=== PATIENT | female | born 1975 | race Caucasian/White ===

== ENCOUNTER → 2020-06-21 13:44 | Outpatient (CLI) | payer BC, OTHER, SELFPAY ==
--- NOTE | ~2020-06-21 | MM_ITS ---
EXAMINATION: MM screening [facility] BI w marcella HISTORY: Screening mammogram TECHNIQUE: Craniocaudal and mediolateral oblique 3-D tomosynthesis images were obtained and synthetic 2-D images were generated. CAD analysis was submitted and interpreted. COMPARISON: 02/14/2019, 01/23/2018 BREAST PARENCHYMAL COMPOSITION: The breasts are almost entirely fatty. FINDINGS: There is no evidence of suspicious mass, calcification, or architectural distortion to sugg est malignancy in either breast. There has been no suspicious interval change. IMPRESSION: 1. No mammographic evidence of malignancy. 2. Recommend routine screening mammography in one year. BI-RADS Category 1: Negative Reviewed, dictated and finalized at location A. [employer]
== END ==
PROVIDERS: Visit Provider Nurse Practitioner
DX: Z12.31 Encounter for screening mammogram for malignant neoplasm of breast (principal)
CPT/HCPCS: 77063; 77067

== ENCOUNTER 2021-05-08 16:24 | Emergency (ER) | payer BC, OTHER, SELFPAY ==
--- NOTE | ~2021-05-08 | XR_ITS ---
EXAMINATION: XR chest 1V portable INDICATION: Shortness of breath, COVID 19 positive TECHNIQUE: Portable AP chest at 1756 hours COMPARISON: None available FINDINGS: There are minimal patchy bilateral airspace opacities. No pleural effusion or pneumothorax is identified. The cardiomediastinal silhouette is normal. IMPRESSION: 1. Patchy bilateral airspace opacities consistent with pneumonia given patient's clinical history of COVID 19. Reviewed, dictated and finalized at location F. [employer] IMPRESSION: 1. Patchy bilateral airspace opacities consistent with pneumonia given patient' s clinical history of COVID 19.
[2021-05-08 16:30] VITALS: BP 133/54; PULSE 113; RESP 16; RESP 20; TEMP 36.4; O2SAT 93
--- NOTE | 2021-05-08 16:33 | ED.SOB ---
HPI - SOB/Dyspnea General Chief Complaint: Unspecified Stated Complaint: covid positive 04/30/21; short of breath Time Seen by Provider: 05/08/21 16:33 Source: patient Mode of arrival: ambulatory Limitations: no limitations History of Present Illness HPI Narrative: 46-year-old woman with a history of hypertension comes in today complaining of mild shortness of breath, fatigue, nausea, vomiting and diarrhea. She has her symptoms started approximately 9 or 10 days ago. On April 30 of this year she had tested positive for COVID. She states that her symptoms do not seem to be getting any worse however she does not seem to be getting any better. She has had some lightheadedness and feels dehydrated. She states that she no longer has a productive cough, has no chest pain, and denies syncope. She takes control pills. Has no personal or family history of VTE or PE. MD elicited complaint: shortness of breath Pertinent past history: other (COVID-19) Onset (ago): day(s) (10) Context: recent illness Timing: constant Severity: moderate Exacerbating factors: exertion Relieving factors: rest Associated symptoms: cough, sputum production (Now resolved) and lightheadedness Treatment prior to arrival: none Related Data Home oxygen amount: none Home Medications Medication Instructions Recorded Confirmed citalopram 20 mg tablet 20 mg PO DAILY 05/18/20 05/08/21 cyclosporine 0.05 % eye drops in a 1 drp OPHTHALMIC (EYE) Q12H 05/18/20 05/08/21 dropperette L norgest/e.estradiol-e.estrad 1 tablet PO DAILY 05/08/21 05/08/21 [Rivelsa] Wellbutrin 150 mg PO DAILY 05/08/21 05/08/21 Allergies Allergy/AdvReac Type Severity Reaction Status Date / Time No Known Allergies Allergy Unknown Verified 05/08/21 16:44 Review of Systems Review of Systems: All systems reviewed & are unremarkable except as noted in HPI and below Constitutional: Constitutional: Denies chills, Reports fatigue and Denies fever(s) Eyes: Eyes: Denies change in vision and Denies photophobia ENT: Reports nasal congestion and Denies sore throat Cardiovascular: Cardiovascular: Denies chest pain and Denies radiating jaw, neck or arm pain Respiratory: Respiratory: Denies chest congestion, Reports cough, Reports dyspnea and Denies wheezing Gastrointestinal: Gastrointestinal: Denies abdominal pain, Reports diarrhea, Reports nausea and Reports vomiting Genitourinary: Genitourinary: Denies nocturia and Denies dysuria Integumentary/Breasts: Skin/Breast: Denies pruritus, Denies erythema and Denies rash Neurologic: Reports dizziness, Denies focal weakness, Denies numbness and Denies weakness Hematologic/Lymphatic: Hematologic/Lymphatic: Denies easy bleeding and Denies easy bruising Allergic/Immunologic: Allergic/Immunologic: Denies lip swelling and Denies throat swelling PMFSH Past Medical History Medical History Anxiety Dry eye Hypertension Surgical History Surgical History History of delivery 2004 History of cholecystectomy History of removal of cyst Social History Social History Smoking status: Never smoker Alcohol intake: current Substance use: never Exam Const: General: no acute distress, alert and ill appearing acutely (Mildly) Orientation/consciousness: patient oriented x3 Limitations: no limitations HENMT: Head: normal to inspection Ears: external ears normal, TM's normal bilaterally and EAC's normal General nose exam: Normal nares present Face and sinus: normal facial exam Mouth: Yes moist mucous membranes Throat: posterior oropharynx normal Eyes: Conjunctivae: conjunctivae normal Pupils: Equal, round and reactive pupils present EOM: EOMs intact bilaterally Resp: Effort & Inspection: normal respiratory effort and not labored Auscultation: clear to auscul
[2021-05-08] MEDS: SODIUM CHLORIDE 0.9% IV 1,000 ML 999 ML IV CONT (17:02)
[2021-05-08 17:22] LABS: Hematocrit 37.9 % (35.0-49.0); Hemoglobin 12.8 g/dL (12.0-15.0); Mean Corpuscular HGB Conc 33.8 g/dL (32.0-36.0); Mean Corpuscular Hemoglobin 31.1 pg (27.0-31.0); Mean Platelet Volume 10.4 fl (9.2-11.8); Platelet Count Result 212 K/mm3 (150-420); Red Blood Count 4.12 M/mm3 (4.20-5.40); Red Cell Distribution Width 13.5 % (11.6-14.4); White Blood Count 3.7 K/mm3 (4.8-10.8)
[2021-05-08 17:37] LABS: Alanine Aminotransferase 157 U/L (14-59); Albumin Level 3.4 g/dL (3.4-5.0); Alkaline Phosphatase 76 U/L (46-116); Anion Gap 10 mmol/L (8-16); Aspartate Amino Transferase 62 U/L (15-37); Bilirubin,Total 0.5 mg/dL (0.00-1.00); Blood Urea Nitrogen 12 mg/dL (7-18); Calcium 8.7 mg/dL (8.5-10.1); Carbon Dioxide 28 mmol/L (21-32); Chloride 104 mmol/L (98-108); D Dimer 0.48 mg/L (0.19-0.50); Estimated CRCL calculation 97 ml/min; Estimated Glomerular Filt Rate > 60; Glucose 90 mg/dL (70-99); INR 0.9; Osmolality Calculated 293 mOsm/kg (285-295); Partial Thromboplastin Time 26.6 SEC (23.90-30.70); Potassium 3.9 mmol/L (3.5-5.1); Sodium 142 mmol/L (136-145); Total Protein 7.9 g/dL (6.4-8.2)
[2021-05-08 18:17] LABS: Add Urine Microscopic? YES; Appearance Urine Clear (Clear); Bilirubin Urine Negative (Negative); Blood Urine Negative (Negative); Color Urine Yellow (Yellow); Glucose Urine UA Negative (Negative); Ketones Urine Trace (Negative); Leukocyte Esterase Ur Negative (Negative); Nitrate Urine Negative (Negative); Protein Urine Trace (Negative); Specific Grav Ur 1.025 (1.010-1.020)
[2021-05-08 18:19] LABS: Pregnancy On Board Control Positive; Urine Pregnancy Test Negative
[2021-05-08 18:24] LABS: Bacteria Urine 2+ /hpf; Mucus Urine Few /lpf; RBC Urine 0-2 /hpf (0-2); Squamous Epithelial Cell Urine Few /hpf (Few); WBC Urine 0-3 /hpf (0-3)
[2021-05-08 18:32] LABS: Band Neutrophils Percent 0 % (0-6); Basophils Absolute Manual 0.03 K/mm3 (0-0.1); Basophils Percent Manual 1 % (0-1); Eosinophils Absolute Manual 0.03 K/mm3 (0.02-0.5); Eosinophils Percent Manual 1 % (1-6); Lymphocytes Absolute Manual 1.25 K/mm3 (1.1-4.5); Lymphocytes Percent Manual 34 % (18-44); Monocytes Absolute Manual 0.11 K/mm3 (0.1-0.90); Monocytes Percent Manual 3 % (3-9); Neutrophils Absolute Manual 2.25 K/mm3 (1.7-7.2); Neutrophils Percent Manual 61 % (46-73); Platelet Estimate Adequate (Adequate); Total Cells Counted 100
[2021-05-08 18:44] VITALS: BP 151/79; PULSE 101; RESP 18; O2SAT 98
== END 2021-05-08 19:07 | disposition home or self-care (01) ==
PROVIDERS: Emergency Provider Emergency Medicine; PCP Physician Assistant
DX: U07.1 COVID-19 (principal); E86.0 Dehydration
CPT/HCPCS: 36415; 71045; 80053; 81001; 81025; 85025; 85380; 85610; 85730; 96360; 99283; J7030

== ENCOUNTER 2024-01-18 11:51 | Outpatient (CLI) | payer OTHER, SELFPAY ==
--- NOTE | ~2024-01-18 | MM_ITS ---
EXAMINATION: MM screening [facility] BI w marcella HISTORY: Screening mammogram TECHNIQUE: Craniocaudal and mediolateral oblique 3-D tomosynthesis images were obtained and synthetic 2-D images were generated. CAD analysis was submitted and interpreted. COMPARISON: 11/18/2020, 02/14/2019, 01/23/2018 BREAST PARENCHYMAL COMPOSITION:Not Dense. The breasts are almost entirely fatty FINDINGS: No suspicious mass, calcification, or architectural distortion are identified in either vitaliy ast to suggest malignancy. There has been no suspicious interval change. IMPRESSION: No mammographic evidence of malignancy. Recommend routine screening mammography in one year. BI-RADS Category 1: Negative Reviewed, dictated and finalized at location .
== END 2024-01-18 11:52 | disposition home or self-care (01) ==
PROVIDERS: PCP Physician Assistant; Visit Provider Nurse Practitioner
DX: Z12.31 Encounter for screening mammogram for malignant neoplasm of breast (principal)
CPT/HCPCS: 77063; 77067

== ENCOUNTER 2024-06-09 08:09 | Emergency (ER) | payer OTHER, SELFPAY ==
--- NOTE | ~2024-06-09 | XR_ITS ---
EXAMINATION: XR knee LT min 4V DATE: 06/09/2024 09:05 INDICATION: Left knee injury. Fall. TECHNIQUE: 4 views of left knee were obtained. COMPARISON: None. FINDINGS: Bone alignment is normal. No fracture. There is mild tricompartmental osteoarthritis. No kn ee joint effusion. IMPRESSION: 1. Mild left knee osteoarthritis. Reviewed, dictated and finalized at location A. ISITION ASSOCIATE
--- OUTSIDE RECORDS SUMMARY | 2024-06-09 08:14 | XMS_ITS | Data Portability ---
Author Organization [place] - [facility] [place], Main Office Address [address] [place] [address] Assessment Encounter Date Assessment Date Assessment LastModified by Organization Details LastModified Time 09/07/2022 09/07/2022 cologuard negative 2022. mammogram UTD gyne exam UTD [email or web address] Not available 09/07/2022 09:34:07 Plan of Treatment Reminders Order Date Submit Date Provider Last Modified By Organization Details Last Modified Time Details Appointments None recorded. Lab CBC w/ auto diff 2022 023 [facility], [address], [address], 3 09:44:07 CMP, serum or plasma 2022 023 [facility], [address], [address], 3 09:44:07 lipid panel, serum 2022 023 [facility], [address] [place] [address] [address], [address], 3 09:44:07 TSH + free T4, serum 2022 023 [facility], 102 [facility], [place], [address], 3 09:44:06 testosteron e, free + total, serum 2022 023 [facility], 102 [facility], [place], [address], 3 09:44:07 insulin, serum 2022 023 [facility], 102 [facility], [place], [address], 3 09:44:07 estradiol, serum 2022 023 [facility], 102 [facility], [place], [address], 3 09:44:07 lh + FSH, serum 2022 023 [facility], [address] [place] [address] 2, [place], [address], 3 09:44:07 progesteron e, serum 2022 023 [facility], [address] [place] [address] 2, [place], [address], 3 09:44:07 prolactin, serum 2022 023 [facility], [address] [place] [address] 2, [place], [address], 3 09:44:08 HbA1c (hemoglobin A1c), blood 2022 023 [facility], [address] [place] [address] 2, [place], [address], 3 09:44:08 Referral None recorded. Procedures None recorded. Surgeries None recorded. Imaging None recorded. Medication Orders bupropion HCl XL 150 mg 24 hr tablet, extended release 2022 023 [facility] #[id number], [address] [place], [id number], 3 15:47:10 escitalopra m 20 mg tablet 2022 023 [facility], [address] [place], [place], [id number], 3 15:47:10 Wegovy 0.25 mg/0.5 mL subcutaneou s pen injector 2022 023 [email or web address] [facility] #66556, [address] [place], [place], [id number], 3 16:09:23 telmisartan 80 mg-hydrochl orothiazide 12.5 mg tablet 2022 023 [facility] #80475, [address] [place], [place], [id number], 3 14:42:21 doxycycline hyclate 100 mg capsule 2022 023 [facility] #31785, [address] [place], [place], [id number], 3 14:41:37 Patient TargetsNo targets recorded. Patient InstructionsNo instructions recorded. Reason for Referral None Reported. Results Created Date Observation Date Name Description Value Unit Range Abnormal Flag Note LastModifiedBy Organization Detail LastModifiedTime 12/18/19 21 12/18/2020 VITAM IN D, 25-HY DROXY vitamin D, 25-hydroxy 32.1 NG/mL 30.0-1 00.0 normal Vitam in D defic iency has been defin ed by the Insti tute of Medic ine and an Endoc rine Socie ty pract ice guide line as a level of serum 25-OH vitam in D less than 20 ng/mL (1,2) . The Endoc rine Socie ty went on to furth er defin e vitam in D insuf ficie ncy as a level betwe en 21 and 29 ng/mL (2). 1. IOM (Inst itute of Medic ine). 2010. Dietpolina ry refer venturae toñito es for calci um and D. Nayeli butcher [place]: The Natio nal [facility] . 2. Jenaro lua MF, Yifan nava NC, Patrick off-F errar i ORTIZ, et al. Evalu ation , treat ment, and preve ntion of vitam in D defic iency : an Endoc rine Socie ty clini danisha pract ice guide line. JCEM. 2010; 96(7) :1911 -30. Not Available [facility] ([facility]) [address] [facility], [place], [address], 12/18/2020 11:37:12 12/18/1912/18/2020 HEMOG LOBIN A1C hemoglobin A1C 5.6 % 4.8-5. 6 normal Predi abete s: 5.7 - 6.4 Diabe robreto: >6.4 Glyce roberto contr ol for adult s with diabe roberto: <7.0 Not Available [facility] ([facility]) [address] [place], [address], 12/18/2020 11:37:12 12/18/19 21 12/18/2020 LIPID PANEL W/ CHOL/ HDL RATIO cholesterol, total 189 mg/dL 100-19 9 normal Not Available [facility] ([facility]) [address] [place], [address], 12/18/2020 11:37:11 12/18/19 21 12/18/2020 LIPID PANEL W/ CHOL/ HDL RATIO triglyceride s 135 mg/dL 0-149 normal Not Available [facility]) [address] [place], [address], 12/18/2020 11:37:11 12/18/19 21 12/18/2020 LIPID PANEL W/ CHOL/ HDL RATIO HDL cholesterol 41 mg/dL >39 normal Not Available [facility]) [address] [place], [address], 12/18/2020 11:37:11 12/18/19 21 12/18/2020 LIPID PANEL W/ CHOL/ HDL RATIO VLDL cholesterol danisha 24 mg/dL 5-40 normal Not Available [facility] ([facility]) [address] [place], [address], 12/18/2020 11:37:11 12/18/19 21 12/18/2020 LIPID PANEL W/ CHOL/ HDL RATIO LDL chol calc ([facility]) 124 mg/dL 0-99 above high normal Not Available [facility] ([facility]) [address] [place], [address], 12/18/2020 11:37:11 12/18/19 21 12/18/2020 LIPID PANEL W/ CHOL/ HDL RATIO comment: rug receiving clerk normal Not Available [facility] ([facility]) [address] [place], [address], 12/18/2020 11:37:11 12/18/19 21 12/18/2020 LIPID PANEL W/ CHOL/ HDL RATIO T. chol/HDL ratio 4.6 ratio 0.0-4. 4 above high normal T. Chol/ HDL Ratio Men Women 1/2 Avg.R isk 3.4 3.3 Avg.R isk 5.0 4.4 2X Avg.R isk 9.6 7.1 3X Avg.R isk 23.4 11.0 Not Available [facility] ([facility]) [address] [place], [address], 12/18/2020 11:37:11 12/18/19 21 12/18/2020 UA WITH CULTU RE REFLE X specific gravity 1.027 1.005- 1.030 normal Not Available [facility] ([facility]) [address] [place], [address], 12/18/2020 11:37:11 12/18/19 21 12/18/2020 UA WITH CULTU RE REFLE X pH 6.0 5.0-7. 5 normal Not Available [facility] ([facility]) [address] [place], [address], 12/18/2020 11:37:11 12/18/19 21 12/18/2020 UA WITH CULTU RE REFLE X urine-color yellow yellow normal Not Available [facility]) [address] [place], [address], 12/18/2020 11:37:11 12/18/19 21 12/18/2020 UA WITH CULTU RE REFLE X appearance clear clear normal Not Available [facility] ([facility]) [address] [place], [address], 12/18/2020 11:37:11 12/18/1912/18/2020 UA WITH CULTU RE REFLE X WBC esterase negati ve negati ve normal Not Available [facility] ([facility]) [address] [place], [address], 12/18/2020 11:37:11 12/18/19 21 12/18/2020 UA WITH CULTU RE REFLE X protein negati ve negati ve/tra ce normal Not Available [facility] ([facility]) [address] [place], [address], 12/18/2020 11:37:11 12/18/19 21 12/18/2020 UA WITH CULTU RE REFLE X glucose negati ve negati ve normal Not Available [facility] ([facility]) [address] [place], [address], 12/18/2020 11:37:11 12/18/19 21 12/18/2020 UA WITH CULTU RE REFLE X ketones negati ve negati ve normal Not Available [facility] ([facility]) [address] [place], [address], 12/18/2020 11:37:11 12/18/19 21 12/18/2020 UA WITH CULTU RE REFLE X occult blood negati ve negati ve normal Not Available [facility] ([facility]) [address] [place], [address], 12/18/2020 11:37:11 12/18/19 21 12/18/2020 UA WITH CULTU RE REFLE X bilirubin negati ve negati ve normal Not Available [facility] ([facility]) [address] [place], [address], 12/18/2020 11:37:11 12/18/1912/18/2020 UA WITH CULTU RE REFLE X urobilinogen ,semi-qn 0.2 mg/dL 0.2-1. 0 normal Not Available [facility] ([facility]) [address] [place], [address], 12/18/2020 11:37:11 12/18/19 21 12/18/2020 UA WITH CULTU RE REFLE X nitrite, urine negati ve negati ve normal Not Available [facility] ([facility]) [address] [place], [address], 12/18/2020 11:37:11 12/18/1912/18/2020 UA WITH CULTU RE REFLE X microscopic examination commen t normal Micro scopi c not indic ated and not perfo rmed. Not Available [facility] ([facility]) [address] [place], [address], 12/18/2020 11:37:11 12/18/1912/18/2020 UA WITH CULTU RE REFLE X urinalysis reflex commen t normal This speci men will not refle x to a Urine Cultu re. Not Available [facility] ([facility]) [address] [place], [address], 12/18/2020 11:37:11 12/18/1912/18/2020 CBC WITH DIFFE RENTI AL/PL ATELE T WBC 8.0 x10e3 /uL 3.4-10 .8 normal Not Available [facility] ([facility]) [address] [facility], [place], [address], 12/18/2020 11:37:10 12/18/1912/18/2020 CBC WITH DIFFE RENTI AL/PL ATELE T RBC 3.96 x10e6 /uL 3.77-5 .28 normal Not Available [facility] ([facility]) [address] [facility], [place], [address], 12/18/2020 11:37:10 12/18/1912/18/2020 CBC WITH DIFFE RENTI AL/PL ATELE T hemoglobin 12.0 g/dL 11.1-1 5.9 normal Not Available [facility] ([facility]) [address] [facility], [place], [address], 12/18/2020 11:37:10 12/18/1912/18/2020 CBC WITH DIFFE RENTI AL/PL ATELE T hematocrit 36.3 % 34.0-4 6.6 normal Not Available [facility] ([facility]) [address] [place], [address], 12/18/2020 11:37:10 12/18/1912/18/2020 CBC WITH DIFFE RENTI AL/PL ATELE T MCV 92 fL 79-97 normal Not Available [facility] ([facility]) [address] [place], [address], 12/18/2020 11:37:10 12/18/1912/18/2020 CBC WITH DIFFE RENTI AL/PL ATELE T MCH 30.3 pg 26.6-3 3.0 normal Not Available [facility] ([facility]) [address] [place], [address], 12/18/2020 11:37:10 12/18/1912/18/2020 CBC WITH DIFFE RENTI AL/PL ATELE T MCHC 33.1 g/dL 31.5-3 5.7 normal Not Available [facility] ([facility]) [address] [facility], [place], [address], 12/18/2020 11:37:10 12/18/1912/18/2020 CBC WITH DIFFE RENTI AL/PL ATELE T RDW 13.2 % 11.7-1 5.4 normal Not Available [facility] ([facility]) [address] [facility], [place], [address], 12/18/2020 11:37:10 12/18/1912/18/2020 CBC WITH DIFFE RENTI AL/PL ATELE T platelets 322 x10e3 /uL 150-45 0 normal Not Available [facility] ([facility]) [address] [facility], [place], [address], 12/18/2020 11:37:10 12/18/1912/18/2020 CBC WITH DIFFE RENTI AL/PL ATELE T neutrophils 61 % not estab. normal Not Available [facility] ([facility]) [address] [facility], [place], [address], 12/18/2020 11:37:10 12/18/1912/18/2020 CBC WITH DIFFE RENTI AL/PL ATELE T lymphs 29 % not estab. normal Not Available [facility] ([facility]) [address] [facility], [place], [address], 12/18/2020 11:37:10 12/18/1912/18/2020 CBC WITH DIFFE RENTI AL/PL ATELE T monocytes 5 % not estab. normal Not Available [facility] ([facility]) [address] [facility], [place], [address], 12/18/2020 11:37:10 12/18/1912/18/2020 CBC WITH DIFFE RENTI AL/PL ATELE T eos 4 % not estab. normal Not Available [facility] ([facility]) [address] [facility], [place], [address], 12/18/2020 11:37:10 12/18/19 21 12/18/2020 CBC WITH DIFFE RENTI AL/PL ATELE T basos 1 % not estab. normal Not Available [facility] ([facility]) [address] [place], [address], 12/18/2020 11:37:10 12/18/1912/18/2020 CBC WITH DIFFE RENTI AL/PL ATELE T immature cells rug receiving clerk normal Not Available [facility] ([facility]) [address] [place], [address], 12/18/2020 11:37:10 12/18/1912/18/2020 CBC WITH DIFFE RENTI AL/PL ATELE T neutrophils (absolute) 4.9 x10e3 /uL 1.4-7. 0 normal Not Available [facility] ([facility]) [address] [place], [address], 12/18/2020 11:37:10 12/18/19 21 12/18/2020 CBC WITH DIFFE RENTI AL/PL ATELE T lymphs (absolute) 2.3 x10e3 /uL 0.7-3. 1 normal Not Available [facility] ([facility]) [address] [place], [address], 12/18/2020 11:37:10 12/18/1912/18/2020 CBC WITH DIFFE RENTI AL/PL ATELE T monocytes(ab solute) 0.4 x10e3 /uL 0.1-0. 9 normal Not Available [facility] ([facility]) [address] [place], [address], 12/18/2020 11:37:10 12/18/19 21 12/18/2020 CBC WITH DIFFE RENTI AL/PL ATELE T eos (absolute) 0.3 x10e3 /uL 0.0-0. 4 normal Not Available [facility] ([facility]) [address] [place], [address], 12/18/2020 11:37:10 12/18/19 21 12/18/2020 CBC WITH DIFFE RENTI AL/PL ATELE T baso (absolute) 0.0 x10e3 /uL 0.0-0. 2 normal Not Available [facility] ([facility]) [address] [facility], [place], [address], 12/18/2020 11:37:10 12/18/1912/18/2020 CBC WITH DIFFE RENTI AL/PL ATELE T immature granulocytes 0 % not estab. normal Not Available [facility] ([facility]) [address] [facility], [place], [address], 12/18/2020 11:37:10 12/18/1912/18/2020 CBC WITH DIFFE RENTI AL/PL ATELE T immature grans (abs) 0.0 x10e3 /uL 0.0-0. 1 normal Not Available [facility] ([facility]) [address] [facility], [place], [address], 12/18/2020 11:37:10 12/18/1912/18/2020 CBC WITH DIFFE RENTI AL/PL ATELE T NRBC rug receiving clerk normal Not Available [facility] ([facility]) [address] [facility], [place], [address], 12/18/2020 11:37:10 12/18/1912/18/2020 CBC WITH DIFFE RENTI AL/PL ATELE T hematology comments: rug receiving clerk normal Not Available [facility] ([facility]) [address] [place], [address], 12/18/2020 11:37:10 12/18/1912/18/2020 TSH+F REE T4 TSH 1.410 uIU/m L 0.450- 4.500 normal Not Available [facility] ([facility]) [address] [place], [address], 12/18/2020 11:37:10 12/18/1912/18/2020 TSH+F REE T4 T4,free(dire ct) 0.97 NG/dL 0.82-1 .77 normal Not Available [facility] ([facility]) [address] [place], [address], 12/18/2020 11:37:10 12/18/1912/18/2020 CMP14 +EGFR glucose 90 mg/dL 65-99 normal Not Available [facility] ([facility]) [address] [place], [address], 12/18/2020 11:37:10 12/18/1912/18/2020 CMP14 +EGFR BUN 14 mg/dL 6-24 normal Not Available [facility] ([facility]) [address] [place], [address], 12/18/2020 11:37:10 12/18/1912/18/2020 CMP14 +EGFR creatinine 0.71 mg/dL 0.57-1 .00 normal Not Available [facility] ([facility]) [address] [place], [address], 12/18/2020 11:37:10 12/18/1912/18/2020 CMP14 +EGFR eGFR if nonafricn AM 105 mL/mi n/1.7 3 >59 normal Not Available [facility] ([facility]) [address] [place], [address], 12/18/2020 11:37:10 12/18/19 21 12/18/2020 CMP14 +EGFR eGFR if africn AM 121 mL/mi n/1.7 3 >59 normal Lab diogo curre ntly repor ts eGFR in compl iance with the curre nt recom menda tions of the Natio nal [facility] y [facility] ation . [facility] will updat e repor ting as new guide lines are publi shed from the NKF-A SN Task force . Not Available [facility] ([facility]) [address] [place], [address], 12/18/2020 11:37:10 12/18/1912/18/2020 CMP14 +EGFR BUN/creatini ne ratio 20 9-23 normal Not Available [facility] ([facility]) [address] [place] [place], [address], 12/18/2020 11:37:10 12/18/1912/18/2020 CMP14 +EGFR sodium 137 mmol/ L 134-14 4 normal Not Available [facility] ([facility]) [address] [place], [address], 12/18/2020 11:37:10 12/18/1912/18/2020 CMP14 +EGFR potassium 4.4 mmol/ L 3.5-5. 2 normal Not Available [facility] ([facility]) [address] [place], [address], 12/18/2020 11:37:10 12/18/1912/18/2020 CMP14 +EGFR chloride 103 mmol/ L 96-106 normal Not Available [facility] ([facility]) [address] [place], [address], 12/18/2020 11:37:10 12/18/1912/18/2020 CMP14 +EGFR carbon dioxide, total 23 mmol/ L 20-29 normal Not Available [facility] ([facility]) [address] [place], [address], 12/18/2020 11:37:10 12/18/1912/18/2020 CMP14 +EGFR calcium 9.3 mg/dL 8.7-10 .2 normal Not Available [facility] ([facility]) [address] [place], [address], 12/18/2020 11:37:10 12/18/1912/18/2020 CMP14 +EGFR protein, total 7.1 g/dL 6.0-8. 5 normal Not Available [facility] ([facility]) [address] [place] [place], [address], 12/18/2020 11:37:10 12/18/19 21 12/18/2020 CMP14 +EGFR albumin 4.2 g/dL 3.8-4. 8 normal Not Available [facility] ([facility]) [address] [place], [address], 12/18/2020 11:37:10 12/18/1912/18/2020 CMP14 +EGFR globulin, total 2.9 g/dL 1.5-4. 5 normal Not Available [facility] ([facility]) [address] [facility], [place], [address], 12/18/2020 11:37:10 12/18/19 21 12/18/2020 CMP14 +EGFR A/G ratio 1.4 1.2-2. 2 normal Not Available [facility] ([facility]) [address] [place], [address], 12/18/2020 11:37:10 12/18/1912/18/2020 CMP14 +EGFR bilirubin, total 0.3 mg/dL 0.0-1. 2 normal Not Available [facility] ([facility]) [address] [place], [address], 12/18/2020 11:37:10 12/18/19 21 12/18/2020 CMP14 +EGFR alkaline phosphatase 67 IU/L 48-121 normal Not Available [facility] [address] [place], [address], 12/18/2020 11:37:10 12/18/19 21 12/18/2020 CMP14 +EGFR AST (SGOT) 10 IU/L 0-40 normal Not Available [facility] ([facility]) [address] [facility], [place], [address], 12/18/2020 11:37:10 12/18/19 21 12/18/2020 CMP14 +EGFR ALT (SGPT) 12 IU/L 0-32 normal Not Available [facility] ([facility]) [address] [facility], [place], [address], 12/18/2020 11:37:10 05/17/19 23 05/17/2022 COLOG UARD cologuard result reportable negati ve negati ve NEGAT MONISHA TEST RESUL T. A negat monisha Colog uard resul t indic ates a low likel ihood that a color ectal cance r (CRC) or advan isidro adeno ma ([place] us polyp s with more advan isidro pre-m align ant featu res) is prese nt. The [facility] e that a perso n with a negat monisha Colog uard test has a color ectal cance r is less than 1 in 1500 (nega tive predi ctive value >99.9 %) or has an advan isidro adeno ma is less than 5.3% (nega tive predi ctive value 94.7% ). These data are based on a prosp ectiv e cross -sect ional study of ,00 0 indiv idual s at [facility] risk for color ectal cance r who were scree keily with both Colog uard and colon oscop y. (Caroline Carpio et al, N Engl J Med 2014; 370(1 4):12 86-12 97) The trisha l value (refe rence range ) for this assay is negat monisha. COLOG UARD RE-SC REENI NG RECOM MENDA TION: Perio dic color ectal cance r scree shailesh is an impor tant part of preve ntive healt hcare for asymp tomat ic indiv idual s at [facility] risk for color ectal cance r. Follo wing a negat monisha Colog uard resul t, the Ameri can Cance r Socie ty and U.S. Multi -Soci ety Task Force scree shailesh guide lines recom mend a Colog uard re-sc michael ng inter debbie of 3 years . Refer ences : Kerry can Cance r Socie ty Guide line for Color ectal Cance r Scree shailesh: https ://che w.can cer.o rg/ca ncer/ colon -rect al-ca ncer/ detec tion- diagn osis- stagi ng/ac s-rec ommen datio ns.ht ml.; [place] CAMACHO, Getachew STANTON, Awais EckertK, Color ectal Cance r Scree shailesh: Recom menda tions for Physi cians and Patie nts from the U.S. Multi -Soci ety Task Force on Color ectal Cance r Scree shailesh , Susan gaog y 2017; 112:1 016-1 030. TEST DESCR IPTIO N: [place] site algor ithmi c tera sis of stool DNA-b iomar kers with hemog lobin immun oassa y. Quant itati ve value s of indiv idual bioma rkers are not repor table and are not assoc iated with indiv idual bioma rker resul t refer ence range s. Colog uard is inten ded for color ectal cance r scree shailesh of adult s of eithe r sex, 45 years or older , who are at [facility] for color ectal cance r (CRC) . Colog uard has been appro shirin for use by the U.S. FDA. The perfo rmanc e of Colog uard was estab lishe d in a cross secti onal study of [facility] adult s aged 50-84 . Colog uard perfo rmanc e in patie nts ages 45 to 49 years was estim ated by sub-g roup tera sis of near- age group s. Colon oscop ies perfo rmed for a posit monisha resul t may find as the most clini haily signi fican t lesio n: color ectal cance r [4.0% ], advan isidro adeno ma (incl uding sessi le daisy ghanshyam polyp s great er than or equal to 1cm diame ter) [20%] or non- advan isidro adeno ma [31%] ; or no color ectal neopl ifrah [45%] . These estim ates are deriv ed from a prosp ectiv e cross -sect ional scree shailesh study of ,00 0 ind[facility]ual [facility] risk for color ectal cance r who were scree keily with both Colog uard and colon oscop y. (Caroline Carpio et al, N Engl J Med 2014; 370(1 4):12 86-12 97.) Colog uard may produ ce a false negat monisha or false posit monisha resul t (no color ectal cance r or preca ncero us polyp prese nt at colon oscop y follo w up). A negat monisha Colog uard test resul t does not guara ntee the absen ce of CRC or advan isidro adeno ma (pre- cance r). The curre nt Colog uard scree shailesh inter debbie is every 3 years . (Amer ican Cance r Socie ty and U.S. Multi -Soci ety Task Force ). Colog uard perfo rmanc e data in a 0 patie nt pivot al study using colon oscop y as the refer ence metho d can be [facility]es sed [facility] locat ion: www.e xactl abs.c om/re yanna . Addit ional descr iptio n of the Colog uard test proce ss, warni ngs and preca ution s can be found at www.c lesviau kajal.c om. Not Available [facility] (Cologuard Orders Only) [address], [place], [address], 05/21/2022 08:24:12 05/20/19 22 05/08/2021 XR, chest No observ ation record ed. [id number] Not Available 06/28/2022 20:43:56 02/09/20 22 01/27/2022 home sleep study No observ ation record ed. [email or web address] [facility] [address], [place], [address], 09/07/2022 09:32:53 Result Notes None recorded. Problems Name Problem SNOMED Code Status Onset Date Resolution Date Notes Provider Name and Address Organization Details Recorded Time Benign essential hypertension 5559379 Active 2018 Not Available [facility] 3 20:42:45 Generalized anxiety disorder 42890665 Active 2018 Not Available [facility] 3 20:42:45 Mixed anxiety and depressive disorder 715679570 Active 2021 Not Available [facility] 3 20:42:45 Otitis externa 6138892 Active 2021 Not Available [facility] 3 20:42:45 Acute pharyngitis 478486955 Active 2021 Not Available [facility] 3 20:42:45 Glossopyrosis 328516375 Active 2021 Not Available [facility] 3 20:42:45 Diarrhea of presumed infectious origin 62975130 Active 2021 Not Available [facility] 3 20:42:45 Sleep apnea 26537991 Active 2021 Not Available [facility] 3 20:42:45 Obstructive sleep apnea syndrome 11218621 Active 2021 YNES Najera null, [facility] [employer] [facility] 3 10:43:06 Polycystic ovary syndrome 552701720 Active 2022 MOLLY Dooley [address] [place] [address] [address], [place], [address] , [facility] [employer] [facility] 3 10:05:14 Notes:COVID-19 pos 04/30/21 Problem Notes None recorded. Procedures Surgical History Date Name Laterality Status Provider Name and Address Organization Details Recorded Time Orthopedic Surgery completed Not Available [facility] 06/28/2022 20:42:03 Cholecystectomy completed Not Available [facility] 06/28/2022 20:42:03 completed Not Available [facility] 0 06/28/2022 20:42:03 Imaging Results Imaging Date Name Status LastModified by Organiz ation Details LastModified Time 05/08/2021 XR, chest completed [id number] Information not available 06/28/2022 20:43:56 01/27/2022 home sleep study completed [email or web address] [address], [place], [address], 09/07/2022 09:32:53 Procedure Notes None recorded. Medical Equipment None Reported. Allergies No known drug allergies Medications Name Sig Start Date Stop Date Status Note LastModified by Organization Details LastModified Time telmisartan 40 mg-hydrochl orothiazide 12.5 mg tablet TK 1 T QD PO 10/23 completed Not Available Not Available Not Available doxycycline hyclate 100 mg capsule TAKE 1 CAPSULE BY MOUTH TWICE DAILY WITH MEALS active Not Available Not Available No t Available labetalol 200 mg tablet Take 2 tablets twice a day by oral route. 06/24 completed Not Available Not Available Not Available azithromyci n 250 mg tablet TK 2 TS PO ON DAY 1, THEN TK 1 T PO D FOR 4 DAYS 01/18 completed Not Available Not Available Not Available Lidocaine Viscous 2 % mucosal solution SWISH AND SPIT 5ML 2 TO 3 TIMES DAILY RETAIN IN MOUTH FOR LONG POSSIBLE FOR 7 DAYS 09/06 completed Not Available Not Available Not Available citalopram 10 mg tablet Take 1 tablet every day by oral route. active Not Available Not Available No t Available cephalexin 250 mg capsule 05/27 completed Not Available Not Available Not Available spironolact one 100 mg tablet active Not Available Not Available Not Available metronidazo le 500 mg tablet Take 1 tablet every 8 hours by oral route. active Not Available Not Available No t Available ciprofloxac in 500 mg tablet Take 1 tablet every 12 hours by oral route. active Not Available Not Available No t Available sulfamethox azole 800 mg-trimetho prim 160 mg tablet TAKE 1 TABLET BY MOUTH TWICE DAILY FOR 7 DAYS 05/11 completed Not Available Not Available Not Available citalopram 20 mg tablet TAKE 1 TABLET BY MOUTH EVERY DAY 10/13 completed 1.5 tabs daily . Not Available Not Available Not Available prednisolon e acetate 1 % eye drops,suspe nsion 10/23 completed Not Available Not Available Not Available promethazin e 25 mg tablet 08/22 completed Not Available Not Available Not Available telmisartan 80 mg tablet TAKE 1 TABLET BY MOUTH EVERY DAY 09/07 completed Not Available Not Available Not Available telmisartan 80 mg-hydrochl orothiazide 12.5 mg tablet TAKE 1 TABLET BY MOUTH EVERY DAY active Not Available Not Available No t Available fluoxetine 10 mg capsule TK 1 C PO QD 10/23 completed Not Available Not Available Not Available diclofenac sodium 75 mg tablet,tee yed release TAKE 1 TABLET BY MOUTH TWICE DAILY 05/12 completed Not Available Not Available Not Available norgestimat e-ethinyl estradiol 0.18 mg/0.215mg/ 0.25mg-35 mcg(28)tabl et 05/27 completed Not Available Not Available Not Available lisinopril 10 mg-hydrochl orothiazide 12.5 mg tablet Take 1 tablet every day by oral route. 08/23 completed Not Available Not Available Not Available cefuroxime axetil 500 mg tablet Take 1 tablet every 12 hours by oral route. active Not Available Not Available No t Available losartan 50 mg-hydrochl orothiazide 12.5 mg tablet Take 1 tablet every day by oral route in the morning. active Not Available Not Available No t Available naproxen 500 mg tablet Take 1 tablet twice a day by oral route with meals. active Not Available Not Available No t Available tobramycin 0.3 %-dexametha sone 0.1 % eye drops,suspe nsion 10/23 completed Not Available Not Available Not Available neomycin 3.5 mg/g-polymy case B 10,000 unit/g-dexa meth 0.1 % eye oint 10/23 completed Not Available Not Available Not Available neomycin-po lymyxin-hyd rocort 3.5 mg-10,000 unit/mL-1 % ear drops,susp SHAKE LIQUID AND INSTILL 4 DROPS TO AFFECTED EAR THREE TIMES DAILY 01/18 completed Not Available Not Available Not Available escitalopra m 20 mg tablet TAKE 1 TABLET BY MOUTH EVERY DAY active Not Available Not Available No t Available bupropion HCl XL 150 mg 24 hr tablet, extended release TAKE 1 TABLET BY MOUTH EVERY DAY active Not Available Not Available No t Available levonorgest rel 0.15 mg-ethinyl estradiol 30 mcg tablets,3 mos pack(91) TAKE 1 TABLET BY MOUTH EVERY DAY 01/19 completed Not Available Not Available Not Available losartan 100 mg-hydrochl orothiazide 12.5 mg tablet TK 1 T QD PO active Not Available Not Available No t Available Victoza 2-Db 0.6 mg/0.1 mL (18 mg/3 mL) subcutaneou s pen injector ADM 1.8 MG SC D 05/12 completed Not Available Not Available Not Available Xiidra 5 % eye drops in a dropperette INSTILL 1 DROP TO BOTH EYES TWICE DAILY 05/11 completed Not Available Not Available Not Available Restasis MultiDose 0.05 % eye drops INSTILL 1 DROP IN BOTH EYES TWICE DAILY 09/07 completed Not Available Not Available Not Available Rivelsa 0.15 mg-20 mcg/0.15 mg-25 mcg tablets,3 month dose pack TAKE 1 TABLET BY MOUTH EVERY DAY active Not Available Not Available No t Available BD Carli 2nd Gen Pen Needle 32 gauge x 5/32 U UTD ONCE D active Not Available Not Available No t Available ID NOW COVID-19 Test Kit TEST DIRECTED TODAY 05/12 completed Not Available Not Available Not Available Wegovy 0.25 mg/0.5 mL subcutaneou s pen injector Inject 0.25 mg every week by subcutane ous route. 10/25 completed Not Available Not Available Not Available Ozempic 0.25 mg or 0.5 mg (2 mg/3 mL) subcutaneou s pen injector inject 0.25mg SQ once weekly x 4 weeks, then increase to 0.5mg SQ once weekly 10/25 completed Not Available Not Available Not Available Zepbound 2.5 mg/0.5 mL subcutaneou s pen injector Inject 2.5 mg every week by subcutane ous route as directed. 2022 active Not Available Not Available Not Avai lable Vitals Date Recorded Body mass index (BMI) Body mass index (BMI) Body height Body height Body height Oxygen saturation Oxygen saturation in Arterial blood by Pulse oximetry Oxygen saturation Oxygen saturation in Arterial blood by Pulse oximetry Heart rate Heart rate Respiratory rate Body temperature Body temperature Body weight Body weight Systolic blood pressure Diastolic blood pressure Systolic blood pressure Diastolic blood pressure Provider Name and Address Organization Details Last Updated DateTime 3 44.3 kg/m2 45.8 kg/m2 167.64 cm 167.64 cm 167.64 cm 99 % 99 % 98 % 98 % 86.99 /min 78 /min 16 /min 98 [degF] 98 [degF] 088413. 03 g 410202. 8 g 120 mm[Hg] 80 mm[Hg] 130 mm[Hg] 82 mm[Hg] Not Available [facility] 3 20:42:33 Date Recorded Body height Body temperature Body mass index (BMI) Body weight Respiratory rate Oxygen saturation Oxygen saturation in Arterial blood by Pulse oximetry Heart rate Systolic blood pressure Diastolic blood pressure Provider Name and Address Organization Details Last Updated DateTime 3 167.64 cm 97.3 [degF] 46.8 kg/m2 112342. 79 g 16 /min 95 % 95 % 86 /min 130 mm[Hg] 82 mm[Hg] YNES Najera [facility] [employer] [facility] 3 09:30:06 Date Recorded Systolic blood pressure Diastolic blood pressure Provider Name and Address Organization Details Last Updated DateTime 09/07/2022 148 mm[Hg] 80 mm[Hg] MOLLY Dooley [address], [address], [employer] [facility] [employer] 09/07/2022 14:42:25 Social History Question Answer Notes LastModified by Organizat ion Details LastModified Time Tobacco Smoking Status Never Smoker Not Available [facility] 06/28/2022 20:41:59 What Is Your Level Of Alcohol Consumption? None [id number] Information not available 06/28/2022 What Is Your Level Of Caffeine Consumption? Moderate [id number] Information not available 06/28/2022 How Much Tobacco Do You Chew? None [id number] Information not available 06/28/2022 In The 14 Days Before Symptom Onset, Have You Had Close Contact With A Laboratory-confir med COVID-19 While That Case Was Ill? No [id number] Information not available 06/28/2022 In The 14 Days Before Symptom Onset, Have You Had Close Contact With A Person Who Is Under Investigation For COVID-19 While That Person Was Ill? No [id number] Information not available 06/28/2022 Are You Currently Employed? Yes [email or web address] Information not available 09/06/2022 What Type Of Diet Are You Following? REGULAR [id number] Information not available 06/28/2022 Which Illicit Or Recreational Drugs Have You Used? None [id number].[id number] Information not available 06/28/2022 Do You Or Have You Ever Used E-cigarettes Or Vape? 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 No MIGRATION.[id number] Information not available 06/28/2022 Do You Use Insect Repellent Routinely? No MIGRATION.[id number] Information not available 06/28/2022 What Is Your Relationship Status? Unknown [id number].[id number] Information not available 06/28/2022 Do You Use Your Seat Belt Or Car Seat Routinely? Yes MIGRATION.[id number] Information not available 06/28/2022 Do You Have Smoke And Carbon Monoxide Detectors In Your Home? Yes MIGRATION.[id number] Information not available 06/28/2022 Do You Or Have You Ever Used Smokeless Tobacco? Never Used Smokeless Tobacco MIGRATION.[id number] 1708 Information not available 06/28/2022 How Much Tobacco Do You Smoke? No MIGRATION.[id number] 0985 Information not available 06/28/2022 Do You Use Any Illicit Or Recreational Drugs? No MIGRATION.[id number] 5597 Information not available 06/28/2022 Do You Use Sunscreen Routinely? Yes MIGRATION.[id number] 2419 Information not available 06/28/2022 Have You Recently Traveled Abroad? No MIGRATION.[id number] Information not available 06/28/2022 Do You Have Any Dietary Restrictions? No MIGRATION.[id number] 3077 Information not available 06/28/2022 Do You Or Have You Ever Used Any Other Forms Of Tobacco Or Nicotine? No MIGRATION.[id number] 6274 Information not available 06/28/2022 Sex: Unknown Functional Status Question Answer Note LastModified by Organizat ion Details LastModified Time What is your exercise level? None [id number] Information not available 06/28/2022 Mental Status None recorded. Family History Relationship Description Onset Age of this Age Resolved Age Notes LastModified by Organization Details LastModified Time Father Hypertensive disorder [id number] Not available 06/28/2022 20:42:03 Maternal Grandfather Malignant lymphoma [id number] Not available 06/28/2022 20:42:04 Paternal Aunt Malignant tumor of breast [id number].[id number] Not available 06/28/2022 20:42:04 Mother Dementia [id number] Not available 06/28/2022 20:42:04 Medical History Condition Response HEARTBURN / REFLUX Y HYPERTENSION Y ANXIETY DISORDER Y BACK / NECK PROBLEMS Y Gynecological History Statement/Question Response Menses Monthly N Date of Last Pap 10/12/2020 Abnormal Pap N Date of Last Mammogram 05/31/2019 Current Control Method BCPs Date of LMP 08/02/2018 Obstetrics History GPAL:G 1 P 0 0 0 1 Type Value Living 1 Total 1 Past Encounters Encounter ID Performer Location Encounter Start Date Encounter Closed Date Diagnosis/Indication Diagnosis SNOMED-CT Code Diagnosis ICD10 Code Diagnosis Note [id number] [facility] [address] [place] [address] 10/13/2020 00:00:00 10/27/2020 17:35:26 [id number] [facility] [address] [place] [address] 05/12/2021 00:00:00 05/30/2021 11:54:22 [id number] [facility] [address] [place] [address] 01/19/2022 00:00:00 01/24/2022 22:08:35 [id number] MOLLY Dooley [facility] [address] [place] [address] 09/07/2022 09:22:44 09/07/2022 10:12:08 Adult health examination 555873478 Z00.01 well exam completed Benign ess ential hypertension 6545241 I10 refill on medication . stable. 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 refilled. Long-term drug therapy 000707278 Z79.899 screening CBC, CMP. Body mass index 40+ - severely obese 094644582 Z68.42 start wegovy if insurance will authorize and screening TFTs due. Polycystic ovary syndrome 554620013 E28.2 screening hormone panel. Cholesterol screening 27 5152967 Z13.220 fasting lipids due Diabetes m ellitus screening 762439986 Z13.1 screening diabetes due Bite of tick 511422141 W 57.XXXA empiric doxy 100mg bid course. Health Concerns Section Related Observation LastModified by Organization Detai ls LastModified Time None Recorded Concern Status LastModified by Organization Details LastModified Time None Recorded Advance Directives Directive None Recorded Payers Encounter Date Sequence Insurance Name Policy Number Policy Ken Covered Member ID Ken Member ID Guarantor Name 09/07/2022 2 [employer] - [employer] [id number] (PPO) [id number] Jeni Kohler [id number] Jeni Kohler 09/07/2022 1 [facility] [id number] Jeni Kohler [id number] Jeni Kohler Notes Date Note Type Note Provider Name and Address Organization Details Recorded Time 10/14/19 21 text/htm l Anxiety, Generalized DisorderReported bypatient.Onset/Timing:as long as patient can remember Severity:severe Context:depression; life stressors Modifying Factors:psychotropic medication Associated Symptoms:difficulty concentrating;difficulty controlling worry;excess anxiety;fatigue;high irritability;restlessness;slee p disturbancesNotes:Doesn't think her Citalopram is working. Feels that her anxiety worsened ~end of last year. Stated she has been dealing w/ frequent loss of family members in the past year or so, loss of a pet this month, of her mother in law last month. Bitely that the citalopram was working well before these recent life stressors. Has been talking to a counselor in the last month or so. She feels that this has been helpful but not quite enough. States that her Citalopram dose was increased from 20 to 30mg in the last 2-3wks ago, has not yet felt any benefit from the dosage changed. States that her symptoms have interfered w/ daily life, made day to day functions more difficult, interfered w/ sleep (both falling asleep and staying asleep). Feels that she does not experience night terrors or nightmares/flashbacks, more so just insomnia. States counselor feels that she has PTSD, major depressive disorder, KWADWO, and ADD. Denies any thoughts of hurting herself or others. Thinks she has attempted prozac in the past but denies any other prior SSRI use/alterations in therapy before beginning the Citalopram. Also wondering if thyroid and Vit D can be checked today. Not Available [employer] 10/27/2020 17:35:26 05/12/19 text/htm l Generic HPI TemplateReported bypatient.Notes:Apr 29 symptoms started (fatigue, aches, chills, sweats, no fever), tested positive apr 30. Pt went to the e/r on 05/08/21 for being dehydrated w/having COVID. They told her everything was fine but she dehydrated and gave her fluids. We called her on the and gave her abx for abnormal CXR infiltrates. Today she says she still has the head congestion but it is improving. Not Available [employer] 05/30/2021 11:54:22 01/20/20 text/htm l Anxiety/DepressionReported bypatient.Quality:doesnt matter time of day. Severity:denies suicidal ideations; able to maintain relationships; does not interfere with activities of daily living Duration:symptoms lasting over 2 weeks Onset/Timing:still present Context:major life stressors(mom just got dx w/dementia) Modifying Factors:she stopped the medication on her own Associated Symptoms:denies homicidal ideations; no significant weight gain; no significant weight loss; no visual/auditory hallucinations; no delusions; no shortness of breath; mood good; no anxiety; no crying spells; no panic; no isolation; sleeping well; appetite good; energy good; no apathy; maintaining functionality HypertensionReported bypatient.Duration:has noted for years Onset/Timing:better Alleviating Factors:medication Self Care:not under emotional stress Associated Symptoms:no shortness of breath; no fatigue; no palpitations; no decline in exercise capacity; no snoring Not Available [employer] 01/24/2022:08:35 09/08/19 23 text/htm l Anxiety/DepressionReported bypatient.Quality:symptoms worse during the day Severity:denies suicidal ideations; able to maintain relationships; does not interfere with activities of daily living Duration:symptoms lasting over 2 weeks Onset/Timing:still present Context:no major life stressors Associated Symptoms:denies homicidal ideations; no significant weight gain; no significant weight loss; no visual/auditory hallucinations; no delusions; no shortness of breathHypertensionReported bypatient.Duration:has noted for years Onset/Timing:better Alleviating Factors:medication Associated Symptoms:no shortness of breath; no fatigue; no palpitations; no decline in exercise capacity; no snoringObstructive Sleep Apnea F/UReported bypatient.Quality:no gasping for air; no witnessed apnea; no hyponasal speech; no frequent breathing through the mouth; no change since last visit;loud snoring Onset/Timing:chronic Duration:continuous Severity:does not limit daily activities; no frequent sore throats resulting in excess missed days from school / work per year; no difficulty getting going in the morning; no awakening in the middle of the night with sore throat Location:no enlarged tonsils; no nasal passage blockage; no throat pain; no feeling of tightness in throat; no chest congestion;throat pain;dryness of mouth Context:no lack of adequate sleep; no shift work; not currently taking medication to help sleep; no recent weight gain; no recent upper respiratory infection; no recent sick contacts; not worse with environmental exposure; not worse with seasonal allergen exposure; no hypertension; normal sleep hours Aggravating factors:not worse during an upper respiratory infection (a cold); not worse when allergies are active Associated Symptoms:no morning headache; no awakening at night short of breath; no sweating heavily at night; no excessive sleepiness during the day; no suddenly falling asleep during the day; no napping; no impaired work performace; no nasal congestion [facility] MOLLY Dooley [address] [place] [address], [facility] [address], [place], [address], [place] [facility] 09/27/2022 16:06:55 OBGyn Episode No OBEpisode recorded.
--- OUTSIDE RECORDS SUMMARY | 2024-06-09 08:14 | XMS_ITS | Clinical Summary ---
Author Organization [facility] Address [address] [place] [address] Phone Care Team Providers Care Traffic Director Name Role Phone JOANN HOWARD DO Unavailable [phone] Reason for Visit and Chief Complaint The Chief Complaint is: No COVID exposure, sx of coughing yellow/green phlegm, swollen S.T, and stuffy nasal congestion since Sunday morning, and diarrhea little bit x 2 days-once daily & this morning (No COVID vaccines) Plan of Treatment Rapid COVID/Flu/Strep testing was negative. Discussed OTC medications as needed for symptoms. Follow up if symptoms worsen or do not improve. - Last Documented On 02/06/2022 2:34PM ; [facility] Assessments Includes: Assessments from this encounter Findings - Contact with and (Suspected) exposure to COVID-19 [Z20.822 - Contact with and (suspected) exposure to COVID-19] - Last Documented On 02/06/2022 2:34PM ; [facility] - Allergic rhinitis [J30.9 - Allergic rhinitis, unspecified] - Last Documented On 02/06/2022 2:34PM ; [facility] - Acute pharyngitis [J02.9 - Acute pharyngitis, unspecified] - Last Documented On 02/06/2022 2:34PM ; [facility] Medical Equipment - Implanted Devices Includes: Current Devices No Medical Equipment Recorded Medications Includes: Medications discussed during this encounter and other current Medications No Medications Taken Medications Administered Includes: Administered Medications from this encounter No Administered Medications Recorded Vital Signs Includes: Vital Signs from this encounter Vital Name 02/06/2022 02:15P Pulse Rate-Sitting (bpm) 93 Temp-Oral (F) 99 Weight (lb) 280 Oxygen Saturation (%) 93 Last Documented: On 02/06/2022 2:17PM ; [facility] Results Includes: Results discussed during this encounter Group A strep [facility] Or[facility] 1 Collected: Reported: 02/06/2022 Last Documented On 2 2:34PM ; [facility] Reviewed by ROSIBEL CHRISTYRadames [facility] on 02/06/2022; All test results are final unless otherwise noted. Rapid Strep neg N (Normal) Last Documented On 2 2:28PM ; [facility] LOT # AND EXP. DATE [id number] 03/09/24 N (Normal) Last Documented On 2 2:28PM ; [facility] INT. QC ACCEPTABLE? yes N (Normal) Last Documented On 2 2:28PM ; [facility] SARS COVID-19 FLU A & B [facility] Collected: Reported: 02/06/2022 Last Documented On 2 2:34PM ; [facility] Reviewed by ROSIBEL CHRISTYRadames [facility] on 02/06/2022; All test results are final unless otherwise noted. COVID neg N (Normal) Last Documented On 2 2:28PM ; [facility] INFLUENZA A neg (Negative) N (Normal) Last Documented On 2 2:28PM ; [facility] INFLUENZA B neg (negative) N (Normal) Last Documented On 2 2:28PM ; [facility] INT. QC ACCEPTABLE? yes N (Normal) Last Documented On 2 2:28PM ; [facility] [employer] [facility] LOT # & EXP. DATE [id number] 03/03/22 N (Normal) Last Documented On 2 2:28PM ; [facility] History of Present Illness Includes: History of Present Illness from this encounter NATHANIEL ELIZONDO is a 46 year old female. - Allergy list reviewed - Medication list reviewed - Feeling poorly (malaise) - No fever - Headache - No eye symptoms - The ears feel pressured - Nasal discharge - Postnasal drip - Nasal passage blockage (stuffiness) - Fluctuating sore throat - No earache - No chest pain or discomfort - No chest tightness or heavy pressure - No dyspnea - No cough - No wheezing - Normal appetite - No nausea - No vomiting - No abdominal pain - No diarrhea - No myalgias - No taste decreased Veronica is here with congestion, sore throat, headache and intermittent loose stools- she reports she thought it might just be allergies but wanted to be checked to be sure. Social History Description Last Updated Tobacco non-user 02/06/2022 Last Documented On 2 2:34PM ; [facility] Smoking Status Unknown Procedures and Surgical History Includes: Procedures from this encounter Procedures Code Diagnosis Performing Provider Service L ocation Service Date the options include decongestants as needed per product instructions Last Documented On 2 2:33PM ; [facility] the options include antihistamines as ne eded per product instructions Last Documented On 2 2:33PM ; [facility] Discussed with family that c urrent strep testing is NEGATIVE. Pt /family with be notified if further testing reveals positive strep pharyngitis. Discussed with pt /family the etiology, natural course, possible complications, and treatment options for pharyngitis. Recommended OTC therapy with pain/fever control products, topical products (lozenges/sprays/gargles) as needed per otr owner operator's recommendation. Recommended for pt/ family to call/return to office with follow up if pt persits with greater than 5 days of symptoms, worsens, or as otherwise directed. Discussed with pt / family that is pt contagious until fever free for at least 24 hours. Return to activities when pt feels well and fever free for 24 hours. Observe pt contacts for signs/symptoms of illness Last Documented On 2 2:33PM ; [facility] patient to call if symptoms worsen or not improved in 3-5 days to update patient's status Last Documented On 2 2:33PM ; [facility] use of tobacco assessment performed 1000F Last Documented On 2 2:15PM ; [facility] Medical History Includes: Medical History addressed during this encounter No Medical History Recorded Family History Includes: Family History addressed during this encounter No Family History Recorded Review of Systems Includes: Review of Systems from this encounter Systemic: No fever. Head: Headache. Otolaryngeal: No earache. Nasal discharge and sore throat. Cardiovascular: No chest pain or discomfort. Pulmonary: No dyspnea, no cough, and no wheezing. Gastrointestinal: No vomiting, no abdominal pain, and no diarrhea. Musculoskeletal: No muscle aches. Neurological: No Loss of taste or smell. Skin: No skin symptoms. Mental Status Includes: Mental Status from this encounter Description Oriented to time, place, and person Functional Status Includes: Functional Status from this encounter No Functional Status Recorded Physical Exam Includes: Physical Exam from this encounter Allergies Includes: Active Allergies No Known Allergies Encounters Encounter Provider Location Date Check-In Time Check-Out Time Diagnosis COVID SICK VISIT- NEW PATIENT ROSIBELJony ZAYAS TRAFFIC REPRESENTATIVE-C [facility] 02/07/20 2:15PM 2:26PM Contact with and (Suspected) Exposure To Covid-19,Brian rgic Rhinitis,Phar yngitis Acute Insurance Includes: Active Insurance Policies Plan Name Member ID Group # Subscriber Relationship Effect fabi Dates 1 - [facility] [id number] VERONICA ELIZONDO Self 04/30/2021 - Unknown 2 - [facility] [id number] JOVON ELIZONDO Clinical Notes Includes: Clinical Notes from this encounter No Clinical Notes Recorded
--- OUTSIDE RECORDS SUMMARY | 2024-06-09 08:14 | XMS_ITS | Clinical Summary ---
Author Organization [facility] Address [address] [place] [address] Phone Care Team Providers Care Solid Waste Collection Worker Name Role Phone JOANN HOWARD DO Unavailable [phone] Reason for Visit and Chief Complaint NEW PATIENT VISIT Plan of Treatment No Plan of Treatment Recorded Assessments Includes: Assessments from this encounter No Assessments Recorded Medical Equipment - Implanted Devices Includes: Current Devices No Medical Equipment Recorded Medications Includes: Medications discussed during this encounter and other current Medications No Medications Taken Medications Administered Includes: Administered Medications from this encounter No Administered Medications Recorded Results Includes: Results discussed during this encounter No Results Recorded For Specified Dates History of Present Illness Includes: History of Present Illness from this encounter No History of Present Illness Recorded Social History No Social History Recorded - Smoking Status Unknown Medical History Includes: Medical History addressed during this encounter No Medical History Recorded Family History Includes: Family History addressed during this encounter No Family History Recorded Review of Systems Includes: Review of Systems from this encounter No Review of Systems Recorded Mental Status Includes: Mental Status from this encounter No Mental Status Recorded Functional Status Includes: Functional Status from this encounter No Functional Status Recorded Physical Exam Includes: Physical Exam from this encounter No Physical Exam Recorded Allergies Includes: Active Allergies No Known Allergies Encounters Encounter Provider Location Date Check-In Time Check- Out Time Diagnosis NEW PATIENT VISIT RODNEY Alma JACOBOIKE DO [facility] 6 9:45AM 11:59PM Insurance Includes: Active Insurance Policies Plan Name Member ID Group # Subscriber Relationship Effect fabi Dates 1 - [facility] [id number] VERONICA ELIZONDO Self 04/30/2021 - Unknown 2 - [employer] [id number] [place] Clinical Notes Includes: Clinical Notes from this encounter No Clinical Notes Recorded
--- OUTSIDE RECORDS SUMMARY | 2024-06-09 08:14 | XMS_ITS ---
Care Plan - [facility] Created on: June 09, 2024 VERONICA ELIZONDO : 1975 Sex: Female Author Organization [facility] Address [address] [place] [address] Phone Care Team Providers Care Plant Maintenance Mechanic Name Role Phone JOANN HOWARD DO Unavailable [phone]
--- OUTSIDE RECORDS SUMMARY | 2024-06-09 08:15 | XMS_ITS ---
Author Organization [facility] Address [address] [place] [address] Phone Care Team Providers Care Windshield Repair Technician Name Role Phone JOANN HOWARD DO Unavailable [phone] Plan of Treatment No Plan of Treatment Recorded Assessments Includes: Assessments for all patient encounters Findings Encounter Date Acute pharyngitis COVID SICK VISIT- NE W PATIENT with ROSIBEL Borges ZAYAS CENTRAL OFFICE WORKER-C 02/06/2022 Last Documented On 2 2:34PM ; [facility] Allergic rhinitis COVID SICK VISIT- NE W PATIENT with ROSIBEL Borges ZAYAS CENTRAL OFFICE WORKER-C 02/06/2022 Last Documented On 2 2:34PM ; [facility] Contact with and (Suspected) exposure to COVID-19 COVID SICK VISIT- NEW PATIENT with ROSIBEL Borges ZAYAS CENTRAL OFFICE WORKER-C 02/06/2022 Last Documented On 2 2:34PM ; [facility] Medical Equipment - Implanted Devices Includes: Current and historical Devices No Medical Equipment Recorded Medications Includes: Current and historical Medications No Medications Taken Medications Administered Includes: Administered Medications in patient's chart No Administered Medications Recorded Results Includes: Results from 06/09/2023 through 06/09/2024 No Results Recorded For Specified Dates History of Present Illness History of Present Illness not supported for this document type No History of Present Illness Recorded Social History Description Last Updated Tobacco non-user 02/06/2022 Last Documented On 2 2:34PM ; [facility] Smoking Status Unknown Medical History Includes: Medical History in patient's chart No Medical History Recorded Family History Includes: Family History in patient's chart No Family History Recorded Review of Systems Review of Systems not supported for this document type No Review of Systems Recorded Mental Status Description Oriented to time, place, and person Functional Status No Functional Status Recorded Physical Exam Physical Exam not supported for this document type No Physical Exam Recorded Allergies Includes: Active, inactive, and resolved Allergies No Known Allergies Insurance Includes: Active Insurance Policies Plan Name Member ID Group # Subscriber Relationship Effect fabi Dates 1 - [facility] [id number] VERONICA ELIZONDO Self 04/30/2021 - Unknown 2 [id number] JOVON ELIZONDO Clinical Notes Includes: Signed Clinical Notes starting from 05/19/2022 No Clinical Notes Recorded
--- OUTSIDE RECORDS SUMMARY | 2024-06-09 08:15 | XMS_ITS | Clinical Summary ---
Author Organization [facility] [address] Address [address] [place] [address] Phone Care Team Providers Care Technicians And Trades Workers Name Role Phone FayelatishaZari Primary Care Pr ovider Allergies No known active allergies Medications INTROVALE 0.15 mg-30 mcg per tablet Take 1 tablet by mouth daily. 10/02/19 18 Active ibuprofen (ADVIL,MOTRIN) 200 mg tab/cap Take by mouth every 6 (six) hours as needed. Active labetalol (NORMODYNE,TRAND ATE) 200 mg tabletIndication s:Essential hypertension Take 2 tablets (400 mg total) by mouth 2 (two) times a day. 360 tablet 3 11/07/19 18 Active citalopram (CeleXA) 20 mg tablet Take 20 mg by mouth daily 07/27/19 21 Active Restasis MultiDose 0.05 % drops INSTILL 1 DROP IN BOTH EYES TWICE DAILY 07/10/19 21 Active telmisartan (MICARDIS) 80 mg tablet Take 80 mg by mouth daily 07/11/19 21 Active pen needle, diabetic (BD Carli 2nd Gen Pen Needle) 32 gauge x 5/32 needle BD Carli 2nd Gen Pen Needle 32 gauge x 5/32 U UTD ONCE D Active levonorgestreL-e thinyl estrad (SEASONALE) 0.15 mg-30 mcg (91) per tablet levonorgestrel 0.15 mg-ethinyl estradiol 30 mcg tablets,3 mos pack(91) TAKE 1 TABLET BY MOUTH EVERY DAY Active buPROPion XL (WELLBUTRIN XL) 150 mg 24 hr tablet bupropion HCl XL 150 mg 24 hr tablet, extended release Active diclofenac DR (VOLTAREN) 75 mg EC tablet diclofenac sodium 75 mg tablet,delayed release TAKE 1 TABLET BY MOUTH TWICE DAILY Active escitalopram (LEXAPRO) 20 mg tablet Take 20 mg by mouth daily 02/24/20 21 Active liraglutide (Victoza 2-Db) 0.6 mg/0.1 mL (18 mg/3 mL) injection Victoza 2-Db 0.6 mg/0.1 mL (18 mg/3 mL) subcutaneous pen injector Active Rivelsa 0.15 mg-20 mcg/ 0.15 mg-25 mcg tablets,dose pack,3 month Take 1 tablet by mouth daily 03/21/20 21 Active naproxen (NAPROSYN) 500 mg tablet naproxen 500 mg tablet TAKE 1 TABLET BY MOUTH TWICE DAILY WITH MEALS Active sulfamethoxazole -trimethoprim (BACTRIM DS) 800-160 mg per tablet sulfamethoxazole 800 mg-trimethoprim 160 mg tablet TAKE 1 TABLET BY MOUTH TWICE DAILY FOR 7 DAYS Active Active Problems Problem Noted Date Diagnosed Date Generalized anxiety disorder 06/21/2018 Acute right ankle pain 11/01/2017 Assessment & Plan (11/06/2017 9:37 AM CDT): She noted the onset of pain in the lateral aspect of her right ankle last . There was no history of injury. She has had problems with the left ankle in the past and has an ankle brace which she has started to wear. The pain is improving. Exam shows no swelling, laxity, tenderness or warmth. There is no joint effusion. Most likely she has a mild soft tissue injury, possibly from her weight. Recommend she stay off the ankle as much as possible. She can apply ice. She can take [id number] Advil as needed. Follow-up in a week or so if not better. Bleeding hemorrhoids 11/22/2015 Overview (08/03/2016): Bleeding hemorrhoid Benign essential hypertension 08/30/2015 Overview (05/02/2021): Hypertension Assessment & Plan (11/06/2017 9:39 AM CDT): She had a little trouble with the labetalol initially, and stopped taking it for awhile, but has resumed it and needs a refill. Blood pressure in the office is in a good range. Continue same and follow-up at least annually. Mixed hyperlipidemia 11/29/2010 Overview (08/04/2016): Hyperlipidemia Assessment & Plan (11/06/2017 9:40 AM CDT): We reviewed her cholesterol profile from 2010. She will be getting some follow- up labs soon in a wellness physical. Based on her 2010 profile, her [place] 10 year risk is very low. There is no indication for treatment at this time. Adiposity 09/28/1997 Overview (08/03/2016): Obesity Assessment & Plan (11/06/2017 9:38 AM CDT): She had some success with weight loss while seeing a sociology teacher, but has gained it all back and more. She is under a lot of stress. 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 She is busy with her family. She plans to drop the photography this summer so she can have more time for herself. She will be working on her weight. We went over basal energy expenditure, allocation of calories, activity level, etc. She will get back with her sociology teacher as well. She will be getting wellness labs soon, and if there are problems or questions, she can bring them in for review. Follow-up at least annually for this problem. Migraine headache 10/28/1989 Overview (10/15/2016): Rare migraines. Immunizations Name Administration Dates Next Due Tdap 11/29/2010 Surgical History Surgery Date Site/Laterality Comments CHOLECYSTECTOMY Cholecystectomy SECTION 04/30/2003 - 04/29/2004 Breech: c/s CYST REMOVAL L wrist cyst removed, details lacking. HEMORRHOID SURGERY Right anterior internal plus external hemorrhoidectomy Medical History Medical History Date Comments Hypertension Hypertension Hemorrhoids 11/22/2015 Hemorrhoids; Com ments: ECS 11/28/2015 - Obesity Obesity; Comment s: ECS 10/12/2015 - 2004 Breech presentat ion, . Family History Medical History Relation Name Comments Hyperlipidemia Father Hyperlipidemi a; Hypertension Father Hypertension; Breast cancer Father's Sister 2 Cancer, b reast; Breast cancer Father's Sister 3 Cancer, b reast; Alzheimer's disease Maternal Grandfather Alzheimer's Disease; Diabetes Maternal Grandmother Diabete s mellitus; /Diabetes mellitus; Migraines Mother Migraines; Relation Name Status Comments Father Father's Sister 1 Father's Sister 2 Father's Sister 3 Maternal Grandfather Maternal Grandmother Mother Social History Tobacco Use Types Packs/Day Years Used Date Smoking Tobacco: Never Smokeless Tobacco: Never Alcohol Use Standard Drinks/Week Comments No 0 (1 standard drink = 0.6 oz pur e alcohol) Personal Safety Answer Date Recorded Have you ever been in or are you currently in a harmful physical or emotional relationship or is someone making you feel afraid or unsafe? Denies 08/26/2022 Comments No Sex and Gender Information Value Date Recorded Sex Assigned at Not on file Legal Sex Female 10:58 AM HOOP EXPANDER Gender Identity Not on file Sexual Orientation Not on file Obstetrics History Last Filed Vital Signs Vital Sign Reading Time Taken Comments Blood Pressure 130/74 08/26/2022 12:35 PM CDT Pulse 80 08/26/2022 12:35 PM CDT Temperature 36.6 C (97.9 F) 08/26/2022 8:43 AM CDT Respiratory Rate 12 08/26/2022 12:35 PM CDT Oxygen Saturation 96% 08/26/2022 12:35 PM CDT Inhaled Oxygen Concentration - - Weight 122.5 kg (270 lb) 08/26/2022 8:43 AM CDT Height 167.6 cm (5' 6 ) 08/26/2022 8:43 AM CDT Body Mass Index 43.58 08/26/2022 8:43 AM CDT Plan of Treatment Health Maintenance Due Date Last Done Comments Breast Cancer Screening-Mammogram 1975 Colon Cancer Screening-Colonoscopy 1975 Depression Screening 1975 Hepatitis C Screening 1975 Hepatitis B Screening 1995 Cervical Cancer Screening 05/02/20132012, 05/01/2012 Regular Well Visit/Exam 18-64 11/06/2018 11/06/2017 DTaP/Tdap/Td Vaccine (2 - Td or Tdap) 11/29/2020 11/29/2010 Influenza Vaccine (#1) 2023 Pneumococcal vaccine <65 Aged Out No longer eligible based on patient's age to complete this topic Procedures Procedure Name Priority Date/Time Associated Diagnosis Comments THINPAP, REFLEX HPV ALL PTH Routine 05/02/2012 1:46 PM HOOP EXPANDER from Last 3 Months or Most Recently Relevant to Health Maintenance Results * ThinPrep Pap, Reflex HPV all pth (05/02/2012 1:46 PM HOOP EXPANDER) SOURCE: SEE NOTE [facility] HISTORICAL RESULTS Comment:Cervix, Endocervix CLINICAL INFORMATION: SEE NOTE [facility] HISTORICAL RESULTS Comment:Normal exam LMP SEE NOTE [facility] HISTORICAL RESULTS Comment:INFORMATION NOT PROV IDED Previous Pap SEE NOTE [facility] HISTORICAL RESULTS Comment:03/27/11 Prev. Bx SEE NOTE [facility] HISTORICAL RESULTS Comment:INFORMATION NOT PROV IDED Pap, specimen adequacy SEE NOTE [facility] HISTORICAL RESULTS Comment: Satisfactory for evaluation. Endocervical/transformation zone component present. Age and/or menstrual status not provided HPV interp SEE NOTE [facility] HISTORICAL RESULTS Comment:Negative for intraep ithelial lesion or malignancy. Lactobacillus species SEE NOTE [facility] HISTORICAL RESULTS Comment: This Pap test has been evaluated with computer assisted technology. Based on the cytology result, reflex High Risk HPV DNA testing was not performed. Abstract Checker SEE NOTE [facility] HISTORICAL RESULTS Comment:YQ, CT(ASCP)) Review ship pilot dispatcher SEE NOTE [facility] HISTORICAL RESULTS Comment: LXS, CT(ASCP) Test performed at [facility] [address] [address] Director: SADE DENT DO [facility] 05/02/2012 1:46 PM HOOP EXPANDER Kat Morales MD LAB PATHOLOGY ORDER NIKOLAS Final Result [facility] HISTORICAL RESULTS from Last 3 Months or Most Recently Relevant to Health Maintenance Insurance [facility] CHOICE PLUS [facility] EPO [facility] CHOICE PLUS [employer] [id number] Member Subscriber Plan / Payer (Ef fective 2022-Present) Name:Jeni Kohler Relation to Subscriber:Self Name:Jeni Kohler Payer ID:[id number] (NA) Group ID:[id number] Type:[employer]IG[employer] HMO/PPO Address: [address] [address] [facility] CHOICE PLUS [employer] OPEN ACCESS [facility] EPO Member Subscriber Plan / Payer (Ef fective 2021-Present) Name:Jeni Kohler Relation to Subscriber:Self Name:Jeni Kohler Payer ID:[id number] (NAIC) Type:[facility] Address: [address] [place] [id number] Care Teams Technicians And Trades Workers Relationship Specialty Start Date End Date Zari Murillo PA PCP - General Physician Drafting Detailer 08/10/20
--- OUTSIDE RECORDS SUMMARY | 2024-06-09 08:15 | XMS_ITS | Data Portability ---
Author Organization [facility]ENTER[facility]ichaDorothy H Address [address] [place] [address] Care Team Providers Care Parts Counterperson Name Role Phone SHAHIDA MARCANO Primary Care Provider Unavailab le Assessment No assessment recorded. Plan of Treatment Reminders Order Date Submit Date Provider Last Modified By Organization Details Last Modified Time Details Appointments ANY 15 2024 08:30A M MOLLY Dooley Not available Not available Not available Lab lipid panel, serum 2024 025 [email or web address] [facility], [address] [place] [address], [address], 05/26/2024 17:00:16 CBC w/ auto diff 2024 025 [email or web address] [facility], [address] [place] [address], [place], [address], 05/26/2024 17:00:16 CMP, serum or plasma 2024 025 [email or web address] [facility], [address] [place] [address], [place], [address], 05/26/2024 17:00:16 insulin, serum 2024 025 [email or web address] [facility], [address] [place] [address], [place], [address], 05/26/2024 17:00:16 TSH + free T4, serum 2024 025 [email or web address] [facility], [address] [place] [address], [place], [address], 05/26/2024 17:00:16 HbA1c (hemoglob in A1c), blood 2024 025 [email or web address] [facility], [address] [place] [address], [address], 05/26/2024 17:00:16 Referral None recorded. Procedures None recorded. Surgeries None recorded. Imaging None recorded. Medication Orders meloxicam 15 mg tablet 2023 024 [email or web address] [facility] #[id number], [address] [place] [address], [id number], 05/01/2024 09:50:35 trazodone 50 mg tablet 2023 024 [facility] #90786, [address] [place] [address], [id number], 07/20/2023 13:20:15 telmisart an 80 mg-hydroc hlorothia zide 12.5 mg tablet 2023 024 [facility] #98943, [address] [place] [address], [id number], 07/20/2023 13:20:10 bupropion HCl XL 150 mg 24 hr tablet, extended release 2023 024 [facility] #39375, [address] [place] [address], [id number], 07/20/2023 13:20:15 escitalop virgil 10 mg tablet 2023 025 [email or web address] [facility] #34313, [address] [place] [address], [id number], 05/01/2024 10:43:28 amlodipin e 2.5 mg tablet 2023 024 [facility] #20049, [address] [place], [place], [id number], 08/21/2023 17:30:20 meloxicam 15 mg tablet 2024 025 [facility] #11027, [address] [place] [address], [id number], 05/01/2024 10:14:58 bupropion HCl XL 150 mg 24 hr tablet, extended release 2024 025 [facility] #61637, [address] [place] [address], [id number], 05/01/2024 10:15:00 escitalop virgil 10 mg tablet 2024 025 [facility] #12547, [address] [place] [address], [id number], 05/01/2024 10:43:38 trazodone 50 mg tablet 2024 025 [facility] #04566, [address] [place] [address], [id number], 05/01/2024 10:14:59 telmisart an 80 mg-hydroc hlorothia zide 12.5 mg tablet 2024 025 [facility] #47702, [address] [place] [address], [id number], 05/01/2024 10:14:58 Patient TargetsNo targets recorded. Patient Instructions Encounter Date Encounter Id Patient Instructions Last Modified By Organization Details Last Modified Time 05/01/2024 [id number] A healthy lifestyle: care instructions [email or web address] Not available 05/01/2024 10:14:52 Reason for Referral None Reported. Results Created Date Observation Date Name Description Value Unit Range Abnormal Flag Note LastModifiedBy Organization Detail LastModifiedTime 07/13/19 24 07/12/2023 MRI, cervi danisha spine , w/o contr ast No observ ation record ed. [email or web address] [address], [place], [address], 07/20/2023 13:09:33 01/18/20 24 01/18/2024 MAMMO , scree shailesh, digit al, bilat eral No observ ation record ed. [email or web address] [address] [facility], [place], [address], 01/20/2024 16:14:39 Result Notes None recorded. Problems Name Problem SNOMED Code Status Onset Date Resolution Date Notes Provider Name and Address Organization Details Recorded Time Benign essential hypertension 3809131 Active 2023 MOLLY Dooley Attn: Gaby julian,[address] [facility], [place], [address], [facility] 4 22:20:06 Obstructive sleep apnea syndrome 92760449 Active 2023 MOLLY Dooley Attn: Accountin g,[address] [facility], [place], [address], [facility] - [facility] 4 22:20:07 Mixed anxiety and depressive disorder 466531135 Active 2023 MOLLY Dooley Attn: Felipein g,[address] [place], [address], [place] [facility] 4 22:20:10 Degeneration of cervical intervertebral disc 42651644 Active 2023 MOLLY Dooley Attn: Accountin g,[address] [facility], [place], [address], [facility] - [facility] 4 22:20:21 Body mass index 40+ - severely obese 576458290 Active 2024 Mariah Gore MA null, [place] - [facility] 5 09:52:12 Obesity 445185525 Active 2024 MOLLY Dooley Attn: Gaby julian,[address], [place], [address], [facility] - [facility] 10:08:53 Long-term drug therapy Active 2024 MOLLY Dooley Attn: Gaby julian,[address], [place], [address], [facility] - [facility]IF 10:08:58 Problem Notes None recorded. Procedures Surgical History None recorded. Imaging Results Imaging Date Name Status LastModified by [facility] Details LastModified Time 07/12/2023 MRI, cervical spine, w/o contrast completed [address], [place], [address], 07/20/2023 13:09:33 01/18/2024 MAMMO, screening, digital, bilateral completed [address] Radiology [address] [place], [address], 01/20/2024 16:14:39 Procedure Notes None recorded. Medical Equipment None Reported. Allergies No known drug allergies Medications Name Sig Start Date Stop Date Status Note LastModified by Organization Details LastModified Time medroxyproge sterone 10 mg tablet TAKE 1 TABLET BY MOUTH EVERY NIGHT AT BEDTIME FOR 10 NIGHTS 05/01 completed Not Available Not Available Not Available doxycycline hyclate 100 mg capsule TAKE 1 CAPSULE BY MOUTH TWICE DAILY WITH MEALS 07/19 completed Not Available Not Available Not Available trazodone 50 mg tablet TAKE 1 TO 2 TABLETS BY MOUTH EVERY NIGHT AT BEDTIME active Not Available Not Available No t Available azithromycin 250 mg tablet TAKE 2 TABLETS (500 MG) BY ORAL ROUTE ONCE DAILY FOR 1 DAY THEN 1 TABLET (250 MG) BY ORAL ROUTE ONCE DAILY FOR 4 DAYS 05/01 completed Not Available Not Available Not Available meloxicam 15 mg tablet TAKE 1 TABLET BY MOUTH DAILY active Not Available Not Available No t Available spironolacto ne 100 mg tablet TAKE 1 TABLET BY MOUTH EVERY DAY active Not Available Not Available No t Available amlodipine 2.5 mg tablet TAKE 1 TABLET BY MOUTH EVERY DAY 2024 active Not Available Not Available Not Avai lable tramadol 50 mg tablet TAKE 1 TABLET BY MOUTH EVERY 6 HOURS NEEDED 05/01 completed Not Available Not Available Not Available amoxicillin 875 mg tablet Take 1 tablet every 12 hours by oral route. 05/01 completed Not Available Not Available Not Available telmisartan 80 mg-hydrochlo rothiazide 12.5 mg tablet Take 1 tablet every day by oral route, for blood pressure . active Not Available Not Available No t Available azelastine 137 mcg (0.1 %) nasal spray active Not Available Not Available Not Available fluticasone propionate 50 mcg/actuatio n nasal spray,suspen adam active Not Available Not Available Not Available escitalopram 10 mg tablet TAKE 1 TABLET BY MOUTH EVERY DAY 05/01 completed Not Available Not Available Not Available escitalopram 20 mg tablet one tab po daily 2024 active Not Available Not Available Not Avai lable bupropion HCl XL 150 mg 24 hr tablet, extended release Take 1 tablet every day by oral route. 2024 active Not Available Not Available Not Avai lable Rivelsa 0.15 mg-20 mcg/0.15 mg-25 mcg tablets,3 month dose pack TAKE 1 TABLET BY MOUTH DAILY active Not Available Not Available No t Available Vitals Date Recorded Respiratory rate Body height Body mass index (BMI) Body weight Oxygen saturation Oxygen saturation in Arterial blood by Pulse oximetry Heart rate Systolic blood pressure Diastolic blood pressure Provider Name and Address Organization Details Last Updated DateTime 4 20 /min 168.28 cm 48 kg/m2 869081. 27 g 96 % 96 % 88 /min 136 mm[Hg] 100 mm[Hg] Mariah Gore MA [facility] 4 12:54:32 Date Recorded Systolic blood pressure Diastolic blood pressure Systolic blood pressure Diastolic blood pressure Provider Name and Address Organization Details Last Updated DateTime 07/20/2023 164 mm[Hg] 110 mm[Hg] 164 mm[Hg] 110 mm[Hg] MOLLY Murphy Attn: Accounting ,[address] [place], [address] , [place] - [facility] 4 13:17:19 Date Recorded Body height Oxygen saturation Oxygen saturation in Arterial blood by Pulse oximetry Heart rate Body mass index (BMI) Body weight Respiratory rate Systolic blood pressure Diastolic blood pressure Provider Name and Address Organization Details Last Updated DateTime 4 168.28 cm 96 % 96 % 84 /min 46.6 kg/m2 096984. 67 g 20 /min 150 mm[Hg] 108 mm[Hg] Mariah Gore MA [facility] 4 17:10:40 Date Recorded Systolic blood pressure Diastolic blood pressure Provider Name and Address Organization Details Last Updated DateTime 08/21/2023 150 mm[Hg] 100 mm[Hg] MOLLY Dooley Attn: Accounting, [place], [address], [facility] 08/21/2023 17:31:52 Date Recorded Body height Body mass index (BMI) Body weight Oxygen saturation Oxygen saturation in Arterial blood by Pulse oximetry Heart rate Systolic blood pressure Diastolic blood pressure Provider Name and Address Organization Details Last Updated DateTime 5 168.28 cm 45.8 kg/m2 070227. 42 g 97 % 97 % 86 /min 150 mm[Hg] 82 mm[Hg] Mariah Gore MA [facility] 5 09:55:19 Date Recorded Respiratory rate Systolic blood pressure Diastolic blood pressure Provider Name and Address Organization Details Last Updated DateTime 05/01/2024 18 /min 150 mm[Hg] 90 mm[Hg] MOLLY Dooley Attn: Accounting, [address] [place], [address], [facility] 05/01/2024 10:14:02 Social History Question Answer Notes LastModified by Organizat ion Details LastModified Time Tobacco Smoking Status Never Smoker Mariah Gore MA null, [facility] 07/20/2023 12:51:13 Do You Have An Advance Directive? No Information not available 08/21/2023 What Is Your Level Of Alcohol Consumption? None Information not available 07/20/2023 Are You Blind Or Do You Have Difficulty Seeing? No Glasses Information not available 07/20/2023 What Is Your Level Of Caffeine Consumption? Occasional 1 Or 2 Coffee, Tea Information not available 07/20/2023 In The 14 Days Before Symptom Onset, Have You Had Close Contact With A Laboratory-confir med COVID-19 While That Case Was Ill? No Information not available 07/20/2023 In The 14 Days Before Symptom Onset, Have You Had Close Contact With A Person Who Is Under Investigation For COVID-19 While That Person Was Ill? No Information not available 07/20/2023 Have You Been To An Area Known To Be High Risk For COVID-19? No Information not available 07/20/2023 Are You Deaf Or Do You Have Serious Difficulty Hearing? No Information not available 07/20/2023 What Type Of Diet Are You Following? REGULAR Information not available 07/20/2023 Are There Any Guns Present In Your Home? No Information not available 07/20/2023 What Was The Date Of Your Most Recent Tobacco Screening? 05/01/2024 Information not available 05/01/2024 Do You Use Your Seat Belt Or Car Seat Routinely? Yes Information not available 07/20/2023 Do You Have Smoke And Carbon Monoxide Detectors In Your Home? Yes Information not available 07/20/2023 Do You Use Any Illicit Or Recreational Drugs? No Information not available 07/20/2023 Do You Use Sunscreen Routinely? Yes Information not available 07/20/2023 Has Tobacco Cessation Counseling Been Provided? Yes Information not available 08/21/2023 On What Date Was Tobacco Cessation Counseling Provided? 05/01/2024 Information not available 05/01/2024 Do You Or Have You Ever Used Any Other Forms Of Tobacco Or Nicotine? No Information not available 07/20/2023 Sex: Female Functional Status Question Answer Note LastModified by Organizat ion Details LastModified Time Are you able to care for yourself? Yes Information not available 07/20/2023 What is your exercise level? Occasional Information not available 07/20/2023 Mental Status None recorded. Family History Nothing Reported. Medical History No medical history recorded. Gynecological History Statement/Question Response Menses Monthly N Date of LMP 03/31/2024 Obstetrics History GPAL:G 1 P 1 0 0 1 Type Value Multiple Births 0 Full Term 1 Induced 0 Spontaneous 0 Premature 0 Living 1 Ectopics 0 Total 1 Past Encounters Encounter ID Performer Location Encounter Start Date Encounter Closed Date Diagnosis/Indication Diagnosis SNOMED-CT Code Diagnosis ICD10 Code Diagnosis Note [id number] MOLLY Dooley [facility] [address] [place] [address] 07/20/2023 12:39:27 07/26/2023 11:21:27 Obstructive sleep apnea syndrome 73810608 G47.33 pt is on cpap therapy but struggling some with tolerating mask. Will add trazodone 50mg -100mg qhs Benign ess ential hypertension 5180470 I10 Restart telmisarta n 80/hctz 12.5mg daily. Mixed anxi ety and depressive disorder 342514201 F41.8 refill on wellbutrin XL 150mg daily and lexapro 10mg daily. Degenerati on of cervical intervertebral disc 28699676 M50.30 Trial of meloxicam 15mg daily while waiting to see pain management . Long-term drug therapy 234424469 Z79.124 [id number] MOLLY Dooley [facility] [address] [place] [address] 08/21/2023 16:42:34 08/22/2023 14:41:07 Benign essential hypertension 3809475 I10 continue telmisarta n 80/hctz 12.5mg daily. add low dose amlodipine 2.5mg daily. Obstructiv e sleep apnea syndrome 47363979 G47.33 pt is on cpap therapy but struggling some with tolerating mask, she nasal mask only but feels that a full face mask would help. trazodone nightly is helping with mask toleration . Mixed anxi ety and depressive disorder 306144859 F41.8 stable on wellbutrin XL 150mg daily and lexapro 10mg daily. Degenerati on of cervical intervertebral disc 05419992 M50.30 saw pain management and they suggested traction physical therapy still and then f/u in august to see if she needs cortisone shot. Long-term drug therapy 808713547 Z79.293 [id number] [facility] [address] [place] [address] 05/01/2024 09:39:40 05/01/2024 13:38:17 Body mass index 40+ - severely obese 798702018 Z68.42 bmi 45.8, fasting insulin and thyroid function testing is due Obesity 229766975 E66.9 discussed healthy diet, exercise, controllin g carbohydra roberto and added sugars in the diet Adult heal th examination 428246419 Z00.01 Annual wellness exam completed Benign ess ential hypertension 8853720 I10 Refill telmisarta n 80/hctz 12.5mg daily. Obstructiv e sleep apnea syndrome 71731790 G47.33 patient is unable to tolerate cpap entirely and is not using it. 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 Trial of trazodone 50-100 mg p.o. q.h.s. to help with sleep and tolerate CPAP. Mixed anxi ety and depressive disorder 177705938 F41.8 refill on wellbutrin XL 150mg daily and lexapro 10mg daily. Stable on medication regimen Degenerati on of cervical intervertebral disc 76500585 M50.30 Trial of meloxicam 15mg daily while waiting to see pain management . Long-term drug therapy 089381186 Z79.899 Routine CBC and CMP are due Cholesterol screening 27 3468128 Z13.220 Fasting lipid panel due Diabetes m ellitus screening 824710225 Z13.1 Routine A1c screening due Health Concerns Section Related Observation LastModified by Organization Detai ls LastModified Time None Recorded Concern Status LastModified by Organization Details LastModified Time None Recorded Advance Directives Directive N: Payers Encounter Date Sequence Insurance Name Policy Number Policy Ken Covered Member ID Ken Member ID Guarantor Name 07/20/2023 1 [facility] [id number] Jeni Kohler [id number] Jeni Kolher 07/20/2023 2 [facility] Jeni Kohler [id number] Jeni Kohler 08/21/2023 1 [facility] [id number] Jeni Kohler [id number] Jeni Kohler 08/21/2023 2 [facility] [employer] LOCAL 421 (PPO) [id number] Jeni Kohler [id number] Jeni Kohler 05/01/2024 1 [employer] [id number] Jeni Kohler [id number] Jeni Kohler 05/01/2024 2 [employer] - [employer] - [employer] LOCAL 421 (PPO) [id number] Jeni Kohler [id number] Jeni Kohler Notes Date Note Type Note Provider Name and Address Organization Details Recorded Time 07/20/19 24 text/htm l Anxiety/DepressionReported bypatient.Quality:symptoms improved Severity:denies suicidal ideations; able to maintain relationships; does not interfere with activities of daily living Duration:frequent Onset/Timing:still present Context:no major life stressors Modifying Factors:medications as directedFatigueReported bypatient.Quality:continuous Severity:normal sleep patterns; normal exercise habits; normal activity Duration:constant Timing:worse Context:symptoms do not improve on weekends/vacations Modifying Factors:no new stressors in life Associated Symptoms:no drug/alcohol withdrawal; no sleep disturbances; no snoring; periods of not breathing (apnea) have not been observed; no recent change in weight;depression;anxietyGeneric HPI TemplateReported bypatient.Notes:pt is on semaglutide via [employer] for 4 weeks, dose increase next week. she has lost a few pounds.HypertensionReported bypatient.Notes:pt bp is elevated again and she is needing to get back on medication.Obstructive Sleep Apnea F/UReported bypatient.Alleviating factors:relief with CPAP Prior TreatmentCPAP Prior opinionPCP MOLLY Dooley Attn: Accounting, [address] [place], [address], [facility] 07/26/2023 09:38:02 08/21/19 24 text/htm l Anxiety/DepressionReported bypatient.Quality:symptoms improved Severity:denies suicidal ideations; able to maintain relationships; does not interfere with activities of daily living Duration:frequent Onset/Timing:still present Context:no major life stressors Modifying Factors:medications as directedGeneric HPI TemplateReported bypatient.Notes:pt is on semaglutide via online for 8 weeks, dose just increased. has lost 10 pounds total.HypertensionReported bypatient.Notes:pt bp is elevated again and she is needing to get back on medication.Obstructive Sleep Apnea F/UReported bypatient.Alleviating factors:relief with CPAP Prior TreatmentCPAP Prior opinionPCP MOLLY Dooley Attn: Accounting, [address] [place], [address], [facility] 08/29/2023 22:21:17 05/01/19 25 text/htm l Anxiety/DepressionReported bypatient.Quality:symptoms improved Severity:denies suicidal ideations; able to maintain relationships; does not interfere with activities of daily living Duration:frequent Onset/Timing:still present Context:no major life stressors Modifying Factors:medications as directedHypertensionReported bypatient.Notes:pt bp is elevated again and she is needing to get back on medication.Obstructive Sleep Apnea F/UReported bypatient.Alleviating factors:relief with CPAP Prior TreatmentCPAP Prior opinionPCP MOLLY Dooley Attn: Accounting, [address] [facility], [place], [address], [facility] 05/19/2024 21:52:35 OBGyn Episode No OBEpisode recorded.
--- OUTSIDE RECORDS SUMMARY | 2024-06-09 08:15 | XMS_ITS | Referral Summary ---
Author Organization [facility] [address] Address [address] [place] [address] Phone Care Team Providers Care Respiratory Coordinator Name Role Phone Zari Murillo Primary Care Pr ovider Allergies No known [...] She can apply ice. She can take droe-uqs-[id number] Advil as needed. Follow-up in a week [...] in a wellness physical. Based on her 2011 profile, her [place] 10 year risk is very low. There is no indication for treatment at this time. Adiposity 09/28/1997 Overview (08/03/2016): Obesity Assessment & Plan (11/06/2017 9:38 AM CDT): She had some success with weight loss while seeing a tipping machine operator automatic, but has gained it all back and [...] etc. She will get back with her tipping machine operator automatic as well. She will be getting wellness labs soon, and if there are problems or questions, she can bring them in for review. Follow-up at least annually for this problem. Migraine headache 10/28/1989 Overview (10/15/2016): Rare migraines. 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 SOCIAL MEDIA & MOBILE MANAGER from Last 3 Months or Most Recently Relevant to Health Maintenance Results * ThinPrep Pap, Reflex HPV all pth (05/02/2012 1:46 PM SR. SOCIAL MEDIA & MOBILE MANAGER) SOURCE: SEE NOTE [facility] HISTORICAL RESULTS Comment:Cervix, [...] Risk HPV DNA testing was not performed. Insurance Verification Specialist SEE NOTE [facility] HISTORICAL RESULTS Comment:YQ, CT(ASCP)) Review payment processor SEE NOTE [facility] HISTORICAL RESULTS Comment: LXS, CT(ASCP) Test performed at [facility] [address] [place] [address] Director: SADE DENT DO [facility] 05/02/2012 1:46 PM SR. SOCIAL MEDIA & MOBILE MANAGER Kat Morales MD LAB PATHOLOGY ORDER NIKOLAS Final Result [facility] HISTORICAL RESULTS from Last 3 Months or Most Recently Relevant to Health Maintenance Insurance [facility]ALTHCARE [facility] HMO/PPO Address: [address] [place] [address] [employer]Y [employer]ILL[employer] EPO [facility] KELSEY BOLIVAR Member Subscriber Plan / Payer (Ef fective 2022-Present) Name:Jeni Kohler Relation to Subscriber:Self Name:Jeni Kohler Payer ID:[id number] ([employer]) Group ID:[id number] Type:[employer] HMO/PPO Address: [address] [place] [address] [facility] CHO[facility] PLUS [facility] OPEN ACCESS [facility] HMO/PPO Address: [address] [place] [address] [facility] Care Teams Respiratory Coordinator Relationship Specialty Start Date End Date Zari Murillo PA PCP - General Physician Sider 08/10/20
--- OUTSIDE RECORDS SUMMARY | 2024-06-09 08:17 | XMS_ITS ---
Care Plan - [facility] Created on: June 09, 2024 VERONICA ELIZONDO : 1975 Sex: Female Author Organization [facility] Address [address] [place] [address] Phone Care Team Providers Care Plant Buyer Name Role Phone JOANN HOWARD DO Unavailable [phone]
--- OUTSIDE RECORDS SUMMARY | 2024-06-09 08:18 | XMS_ITS ---
Author Organization [facility] Address [address] [place] [address] Phone Care Team Providers Care Attending Ambulatory Care Name Role Phone JOANN HOWARD DO Unavailable [phone] Plan of Treatment No Plan of Treatment Recorded Assessments Includes: Assessments for all patient encounters Findings Encounter Date Acute pharyngitis COVID SICK VISIT- NE W PATIENT with ROSIBEL Borges ZAYAS TRACK RIDER-C 02/06/2022 Last Documented On 2 2:34PM ; [facility] Allergic rhinitis COVID SICK VISIT- NE W PATIENT with ROSIBEL Borges ZAYAS TRACK RIDER-C 02/06/2022 Last Documented On 2 2:34PM ; [facility] Contact with and (Suspected) exposure to COVID-19 COVID SICK VISIT- NEW PATIENT with ROSIBEL Borges ZAYAS TRACK RIDER-C 02/06/2022 Last Documented On 2 2:34PM ; [facility] Medical Equipment - Implanted Devices [...] 02/06/2022 Last Documented On 2 2:34PM ; [facility] Smoking Status Unknown Medical History Includes: Medical [...] Subscriber Relationship Effect fabi Dates 1 - [facility] [id number] VERONICA ELIZONDO Self 04/30/2021 - Unknown 2 - [facility] [id number] JOVON ELIZONDO Clinical Notes Includes: Signed Clinical Notes starting from 05/19/2022 No Clinical Notes Recorded
--- OUTSIDE RECORDS SUMMARY | 2024-06-09 08:18 | XMS_ITS | Clinical Summary ---
Author Organization [facility] Address [address] [place] [address] Phone Care Team Providers Care Front End Software Developer Name Role Phone JOANN HOWARD DO Unavailable [phone] Reason for Visit and [...] - Last Documented On 02/06/2022 2:34PM ; [facility] Assessments Includes: Assessments from this encounter Findings - Contact with and (Suspected) exposure to COVID-19 [Z20.822 - Contact with and (suspected) exposure to COVID-19] - Last Documented On 02/06/2022 2:34PM ; [facility] - Allergic rhinitis [J30.9 - Allergic rhinitis, unspecified] - Last Documented On 02/06/2022 2:34PM ; [facility] - Acute pharyngitis [J02.9 - Acute pharyngitis, unspecified] - Last Documented On 02/06/2022 2:34PM ; [facility] Medical Equipment - Implanted Devices Includes: [...] 93 Last Documented: On 02/06/2022 2:17PM ; [facility] Results Includes: Results discussed during this encounter Group A strep [facility] 1 Collected: Reported: 02/06/2022 Last Documented On 2 2:34PM ; [facility] Reviewed by ROSIBEL CHRISTYRadames [facility] on 02/06/2022; All test results are final unless otherwise noted. Rapid Strep neg N (Normal) Last Documented On 2 2:28PM ; [facility] LOT # AND EXP. DATE [id number] 03/09/24 N (Normal) Last Documented On 2 2:28PM ; [facility] INT. QC ACCEPTABLE? yes N (Normal) Last Documented On 2 2:28PM ; [facility] SARS COVID-19 FLU A & B [facility] on 1 Collected: Reported: 02/06/2022 Last Documented On 2 2:34PM ; [facility] Reviewed by ROSIBEL CHRISTYRadames [facility] on 02/06/2022; All test results are final unless otherwise noted. COVID neg N (Normal) Last Documented On 2 2:28PM ; [facility] INFLUENZA A neg (Negative) N (Normal) Last Documented On 2 2:28PM ; [facility] INFLUENZA B neg (negative) N (Normal) Last Documented On 2 2:28PM ; [facility] INT. QC ACCEPTABLE? yes N (Normal) Last Documented On 2 2:28PM ; [facility] LOT # & EXP. DATE [id number] 03/03/22 N (Normal) Last Documented On 2 2:28PM ; [facility] History of Present Illness Includes: History of [...] 02/06/2022 Last Documented On 2 2:34PM ; [facility] Smoking Status Unknown Procedures and Surgical History Includes: Procedures from this encounter Procedures Code Diagnosis Performing Provider Service L ocation Service Date the options include decongestants as needed per product instructions Last Documented On 2 2:33PM ; [facility] the options include antihistamines as ne eded per product instructions Last Documented On 2 2:33PM ; [facility] Discussed with family that c urrent strep testing is NEGATIVE. Pt /family with be notified if further testing reveals positive strep pharyngitis. Discussed with pt /family the etiology, natural course, possible complications, and treatment options for pharyngitis. Recommended OTC therapy with pain/fever control products, topical products (lozenges/sprays/gargles) as needed per car and yard supervisor's recommendation. 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
--- OUTSIDE RECORDS SUMMARY | 2024-06-09 08:18 | XMS_ITS | Clinical Summary ---
Author Organization [facility] Address [address] [place] [address] Phone Care Team Providers Care Band Lining Bander Name Role Phone JOANN HOWARD DO Unavailable [phone] Reason for Visit and [...] Check- Out Time Diagnosis NEW PATIENT VISIT RODNYE Alma JACOBOIKE DO [facility] 6 9:45AM 11:59PM Insurance Includes: Active Insurance Policies Plan Name Member ID Group # Subscriber Relationship Effect fabi Dates 1 - [facility] [id number] VERONICA ELIZONDO Self 04/30/2021 - Unknown 2 - [employer] [id number] [id number] CAROJOVON Clinical Notes Includes: Clinical Notes from this encounter No Clinical Notes Recorded
[2024-06-09 08:20] VITALS: BP 156/76; PULSE 91; RESP 16; TEMP 36.4; O2SAT 97
--- NOTE | 2024-06-09 08:23 | ED_ITS ---
HPI - Extremity Injury (Lower) General Chief Complaint: Extremity Injury, Lower Stated Complaint: left knee injury Time Seen by Provider: 06/09/24 08:24 Source: patient Mode of arrival: ambulatory Limitations: no limitations History of Present Illness HPI Narrative: 49-year-old female presented for complaint of left knee pain for 2 weeks following a fall. She states while on vacation she tripped on [employer] rocks and fell Onto the left knee on concrete. Has not taken anything for pain. Denies significant swelling, bruising, deformity, numbness or tingling. Has been ambulatory without difficulty. She states it hurts to touch and would like it x-ray. Related Data Home Medications ?Medication ?Instructions ?Recorded ?Confirmed ?Last Taken ?Type citalopram 20 mg tablet 20 mg PO DAILY 05/18/20 05/08/21 Unknown History cyclosporine 0.05 % eye drops in a 1 drp ophthalmic (eye) Q12H 05/18/20 05/08/21 Unknown History dropperette (Restasis) L norgest/EE 1 tablet PO DAILY 05/08/21 05/08/21 Unknown History 0.15-0.02mg/0.15-0.025mg/0.15-0.03mg/EE 0.01 mg tabs,3mo (Rivelsa) Wellbutrin 150 mg PO DAILY 05/08/21 05/08/21 Unknown History amlodipine 2.5 mg tablet mg 06/09/24 Unknown History azelastine 137 mcg (0.1 %) nasal intranasal 06/09/24 Unknown History spray bupropion HCl 150 mg 24 hr tablet, mg PO 06/09/24 Unknown History extended release escitalopram oxalate 20 mg tablet mg 06/09/24 Unknown History spironolactone 100 mg tablet mg 06/09/24 Unknown History Allergies Allergy/AdvReac Type Severity Reaction Status Date / Time No Known Allergies Allergy Unknown Verified 05/08/21 16:44 Review of Systems Review of Systems: CONSTITUTIONAL: Denies body aches, fever, chills CARDIOVASCULAR: Denies chest pain, palpitations, or edema. RESPIRATORY: Denies cough or dyspnea. SKIN: Denies rash, itching, or wounds. MUSCULOSKELETAL: Reports left knee pain NEUROLOGIC: Denies headache, numbness, tingling, or weakness. PSYCH: Denies depression or anxiety. All systems reviewed & are unremarkable except as noted in HPI and below PMFSH Past Medical History Medical History Dry eye Hypertension Anxiety Surgical History Surgical History History of removal of cyst History of cholecystectomy History of delivery 2003 Social History Social History Smoking status: Never smoker Alcohol intake: current Substance use: never Comments At time of signature, I have reviewed and agree with nursing past medical, cedeño rgical, social and family history unless otherwise noted. Please see nursing chart for further information. There is no relevant family history pertinent to the presenting complaint Exam Narrative: GENERAL: Well-appearing CHEST: Speaks in full sentences. No respiratory distress. HEART: Regular rate and rhythm. Normal and equal peripheral pulses. EXTREMITIES: left lower extremity has normal strength and sensation, Patient is able to bear weight and ambulate. No bruising, erythema or warmth to the patella. The left knee is without obvious asymmetry or deformity when compared to the other knee. Patient is able to tolerate full flexion, extension, internal and external rotation. mildly tender to the patella. no effusion or ballottement. No tenderness over the infrapatellar tendon. No tenderness over the proximal fibular head. No quadriceps tenderness. Distal motor and neurovascular status intact. SKIN: Warm, dry No wound NEURO: Alert and oriented x3. PSYCH: Normal mood and affect Course Course Emergency Course: Patient is aware of diagnosis, understands and agrees to treatment plan. Anticipatory guidance given. Patient agrees to follow-up as directed and is aware of reasons to seek care at the emergency department. Portions of this record may have been created with voice recognition software Level of Care: Express Care Visit Vital Signs Vital signs: Vital Signs Temperature 97.5 F L 06/09/24 08:20 Pulse Rate 91 06/09/24 08:20 Respiratory Rate 16 06/09/24 08:20 Blood Pressure 156/76 H 06/09/24 08:20 Pulse Oximetry 97 06/09/24 08:20 Oxygen Delivery Room Air 06/09/24 08:20 Temperature 97.5 F L 06/09/24 08:20 Pulse Rate 91 06/09/24 08:20 Respiratory Rate 16 06/09/24 08:20 Blood Pressure 156/76 H 06/09/24 08:20 Pulse Oximetry 97 06/09/24 08:20 Oxygen Delivery Room Air 06/09/24 08:20 Reviewed MDM - Extremity Injury (Lower) MDM Narrative Medical decision making narrative: Discussed physical exam findings and knee x-ray. Advised supportive measures and signs/symptoms to go to the ER. Pt is appropriate for outpt treatment and f/u. Differential Diagnosis Differential diagnosis: Likely acute internal derangement of knee and other (osteoarthritis, patella dislocation, patellar tendonitis, tendon rupture, gout, bakers cyst, septic bursitis, dvt, tibial plateau fracture) Imaging Data Radiologist's impression: Patient: Jeni Kohler : 1975 MR#: [id number] Age: 49 Acct:[id number] Loc: [facility] ADM Date: 06/09/24Attending Dr: Ordering Physician: Kristina Gonzalez APRN Date of Service: 06/09/24 Procedure(s): XR knee LT min 4V Accession Number(s): [id number] cc: Kristina Gonzalez APRN; Lidia, Zari GARCIA~ EXAMINATION: XR knee LT min 4V DATE: 06/09/2024 09:05 INDICATION: Left knee injury. Fall. TECHNIQUE: 4 views of left knee were obtained. COMPARISON: None. FINDINGS: Bone alignment is normal. No fracture. There is mild tricompartmental osteoarthritis. No knee joint effusion. IMPRESSION: 1. Mild left knee osteoarthritis. Discharge Plan Discharge Clinical Impression: Acute knee pain Patient Disposition: Home, Self-Care Condition: Stable Instructions: Knee Pain (ED) Additional Instructions: Rest and elevate the left leg; bear weight as tolerated Apply ice 15-20 minute intervals several times a day Keep it wrapped with SOWMYA or use a soft knee splint Motrin 800mg every 8 hours, alternate with Tylenol 1000mg every 8 hours as needed Follow up with your primary care provider as needed go to the ER for any worsening symptoms or concerns Patient Language: Chinese Prescriptions: No Action L norgest/e.estradiol-e.estrad [Rivelsa] 0.15 mg-20 mcg/ 0.15 mg-25 mcg tablets,dose pack,3 month 1 tablet PO DAILY Wellbutrin 150 mg PO DAILY promethazine 25 mg tablet 25 mg PO QID PRN (Reason: nausea and vomiting) Qty: 10 0RF spironolactone 100 mg tablet amlodipine 2.5 mg tablet azelastine 137 mcg (0.1 %) spray,non-aerosol INTRANASAL escitalopram oxalate 20 mg tablet bupropion HCl 150 mg tablet extended release 24 hr PO Restasis 0.05 % dropperette 1 drp ophthalmic (eye) Q12H citalopram 20 mg tablet 20 mg PO DAILY Follow-up/Referrals: Lidia,RADHA Hameed [Primary Care Provider] -
== END 2024-06-09 09:29 | disposition home or self-care (01) ==
PROVIDERS: Emergency Provider Nurse Practitioner Family; PCP Physician Assistant
DX: M25.562 Pain in left knee (principal); W18.30XA Fall on same level, unspecified, initial encounter; I10 Essential (primary) hypertension; F41.9 Anxiety disorder, unspecified
CPT/HCPCS: 73564; 99213; G0463

== ENCOUNTER 2024-09-26 01:14 | Day surgery (SDC) | payer OTHER, SELFPAY ==
[2024-09-16 15:46] VITALS: BMI 43.6
--- NOTE | 2024-09-16 15:47 | PC.NURSE ---
Report to the Outpatient Waiting Room, entrance under the green pavilion located off [facility], at time _1230_ on date _[id number]_. Planned Procedure Time: _130pm_.? Time changes happen often and if your time is changed the preop area will call you the afternoon before. - You and your visitor will be asked to self-screen and do not enter if you have any COVID symptoms. Please call surgeon if you need to reschedule. - A mask is optional within the hospital at this time. No smoking, or chewing tobacco (or any form of nicotine). Ok for Breakfast and a light lunch. Take only the following medications with a SIP of water on the morning of surgery: ___OK to take medicines as usual DO NOT STOP ANY OF YOUR OTHER PRESCRIPTION MEDICATIONS PRIOR TO SURGERY EXCEPT THE FOLLOWING Hold all vitamins and supplements for 3 days per anesthesiologist. Medications to discontinue per physician Please ask Dr Sterling's office if need to hold Meloxicam. Date to take last dose Please no make-up, nail georgian, hairspray, perfume, deodorant, or body powder the day of surgery.? No jewelry (including any body piercings) or valuables the day of surgery, leave them at home.? Please take a shower or bath the night before, or the morning of, surgery with an antibacterial soap.? Wear comfortable, loose fitting clothing.? - Jewelry must be removed prior to entering the operating room.? Rings and piercings that are not removed may be cut off. - The hospital will not accept responsibility for valuables.? - Please leave all valuables, including medications, at home the day of surgery. OK to drive after procedure, also OK to have someone drive you home. Follow any additional instructions given to you from your surgeon. Telephone instructions given to __Jeni___and asked if any additional questions and then verbalized understanding. Patient advised to call surgeon office or pre surgery nurse liaison [phone] if any additional questions.
[2024-09-26] VITALS (7 sets, daily range): BP systolic 135–154; BP diastolic 70–77; PULSE 74–93; RESP 14–18; TEMP 36.1; O2SAT 97–99
--- OUTSIDE RECORDS SUMMARY | 2024-09-26 01:17 | XMS_ITS | Data Portability ---
Author Organization [place] - [facility] [employer], Main Office Address [address] [place] [address] Assessment Encounter Date Assessment Date Assessment LastModified by Organization Details LastModified Time 09/07/2022 09/07/2022 cologuard negative 2022. mammogram UTD gyne exam UTD [email or web address] Not available 09/07/2022 09:34:07 Plan of Treatment Reminders Order Date Submit Date Provider Last Modified By Organization Details Last Modified Time Details Appointments None recorded. Lab CBC w/ auto diff 2022 023 [facility], [address], [address], 3 09:44:07 CMP, serum or plasma 2022 023 [facility], [address], [address], 3 09:44:07 lipid panel, serum 2022 023 [facility], [address] [place] [address] [place], [address], 3 09:44:07 TSH + free T4, serum 2022 023 [facility], 102 [facility], [facility] 2, [place], [address], 3 09:44:06 testosteron e, free + total, serum 2022 023 [facility], 102 [facility], [facility] 2, [place], [address], 3 09:44:07 insulin, serum 2022 023 [facility], 102 [facility], [facility] 2, [place], [address], 3 09:44:07 estradiol, serum 2022 023 [facility], 102 [facility], [place], [address], 3 09:44:07 lh + FSH, serum 2022 023 [facility], [address] [place] [address] 2, [place], [address], 3 09:44:07 progesteron e, serum 2022 023 [facility], [address] [place] [address] 2, [place], [address], 3 09:44:07 prolactin, serum 2022 023 [facility], [address] [place] [address] 2, [place], [address], 3 09:44:08 HbA1c (hemoglobin A1c), blood 2022 023 [facility], [address] [place] [address] 2, [place], [address], 3 09:44:08 Referral None recorded. Procedures None recorded. Surgeries None recorded. Imaging None recorded. Medication Orders bupropion HCl XL 150 mg 24 hr tablet, extended release 2022 023 [facility][id number], [address] [place], [place], [id number], 3 15:47:10 escitalopra m 20 mg tablet 2022 023 [facility], [address], [place], [id number], 3 15:47:10 Wegovy 0.25 mg/0.5 mL subcutaneou s pen injector 2022 023 [email or web address] [facility] #49994, [address] [place], [place], [id number], 3 16:09:23 telmisartan 80 mg-hydrochl orothiazide 12.5 mg tablet 2022 023 [facility] #92847, [address] [place], [place], [id number], 3 14:42:21 doxycycline hyclate 100 mg capsule 2022 023 [facility] #77852, [address], [place], [id number], 3 14:41:37 Patient TargetsNo targets recorded. Patient [...] Nayeli butcher [place]: [facility] . 2. Jenaro lua MF, Yifan nava [place], Patrick off-F errar i ORTIZ, et al. Evalu ation , treat ment, and preve ntion of vitam in D defic iency : an Endoc rine Socie ty clini danisha pract ice guide line. JCEM. 2010; 96(7) :1911 -30. Not Available [facility] ([facility]) [address] [facility], [place], [address], 12/18/2020 11:37:12 12/18/1912/18/2020 HEMOG LOBIN A1C hemoglobin A1C 5.6 % 4.8-5. 6 normal Predi abete s: 5.7 - 6.4 Diabe roberto: >6.4 Glyce roberto contr ol for adult s with diabe roberto: <7.0 Not Available [facility] ([facility]) [address] [place], [address], 12/18/2020 11:37:12 12/18/19 21 12/18/2020 LIPID PANEL W/ CHOL/ HDL RATIO cholesterol, total 189 mg/dL 100-19 9 normal Not Available [facility] ([facility]) [address] [place], [address], 12/18/2020 11:37:11 12/18/19 21 12/18/2020 LIPID PANEL W/ CHOL/ HDL RATIO triglyceride s 135 mg/dL 0-149 normal Not Available [facility]) [address] [place], [address], 12/18/2020 11:37:11 12/18/19 21 12/18/2020 LIPID PANEL W/ CHOL/ HDL RATIO HDL cholesterol 41 mg/dL >39 normal Not Available [facility]) [address] [place], [address], 12/18/2020 11:37:11 12/18/19 21 12/18/2020 LIPID PANEL W/ CHOL/ HDL RATIO VLDL cholesterol danisha 24 mg/dL 5-40 normal Not Available [facility] ([facility]) [address] [place], [address], 12/18/2020 11:37:11 12/18/19 21 12/18/2020 LIPID PANEL W/ CHOL/ HDL RATIO LDL chol calc ([facility]) 124 mg/dL 0-99 above high normal Not Available [facility] ([facility]) [address] [place], [address], 12/18/2020 11:37:11 12/18/19 21 12/18/2020 LIPID PANEL W/ CHOL/ HDL RATIO comment: ct tech normal Not Available [facility] ([facility]) [address] [place], [address], 12/18/2020 11:37:11 12/18/19 21 12/18/2020 LIPID PANEL W/ CHOL/ HDL RATIO T. chol/HDL ratio 4.6 ratio 0.0-4. 4 above high normal T. Chol/ HDL Ratio Men Women 1/2 Avg.R isk 3.4 3.3 Avg.R isk 5.0 4.4 2X Avg.R isk 9.6 7.1 3X Avg.R isk 23.4 11.0 Not Available [facility] ([facility]) [address] [place], [address], 12/18/2020 11:37:11 12/18/19 21 12/18/2020 UA WITH CULTU RE REFLE X specific gravity 1.027 1.005- 1.030 normal Not Available [facility] ([facility]) [address] [place], [address], 12/18/2020 11:37:11 12/18/19 21 12/18/2020 UA WITH CULTU RE REFLE X pH 6.0 5.0-7. 5 normal Not Available [facility] ([facility]) [address] [place], [address], 12/18/2020 11:37:11 12/18/19 21 12/18/2020 UA WITH CULTU RE REFLE X urine-color yellow yellow normal Not Available [facility]) [address] [place], [address], 12/18/2020 11:37:11 12/18/19 21 12/18/2020 UA WITH CULTU RE REFLE X appearance clear clear normal Not Available [facility] ([facility]) [address] [place], [address], 12/18/2020 11:37:11 12/18/1912/18/2020 UA WITH CULTU RE REFLE X WBC esterase negati ve negati ve normal Not Available [facility] ([facility]) [address] [place], [address], 12/18/2020 11:37:11 12/18/19 21 12/18/2020 UA WITH CULTU RE REFLE X protein negati ve negati ve/tra ce normal Not Available [facility] ([facility]) [address] [place], [address], 12/18/2020 11:37:11 12/18/19 21 12/18/2020 UA WITH CULTU RE REFLE X glucose negati ve negati ve normal Not Available [facility] ([facility]) [address] [place], [address], 12/18/2020 11:37:11 12/18/19 21 12/18/2020 UA WITH CULTU RE REFLE X ketones negati ve negati ve normal Not Available [facility] ([facility]) [address] [place], [address], 12/18/2020 11:37:11 12/18/19 21 12/18/2020 UA WITH CULTU RE REFLE X occult blood negati ve negati ve normal Not Available [facility] ([facility]) [address] [facility] [place], [address], 12/18/2020 11:37:11 12/18/19 21 12/18/2020 UA WITH CULTU RE REFLE X bilirubin negati ve negati ve normal Not Available [facility] ([facility]) [address] [place], [address], 12/18/2020 11:37:11 12/18/1912/18/2020 UA WITH CULTU RE REFLE X urobilinogen ,semi-qn 0.2 mg/dL 0.2-1. 0 normal Not Available [facility] ([facility]) [address] [place], [address], 12/18/2020 11:37:11 12/18/19 21 12/18/2020 UA WITH CULTU RE REFLE X nitrite, urine negati ve negati ve normal Not Available [facility] ([facility]) [address] [place], [address], 12/18/2020 11:37:11 12/18/1912/18/2020 UA WITH CULTU RE REFLE X microscopic examination commen t normal Micro scopi c not indic ated and not perfo rmed. Not Available [facility] ([facility]) [address] [place], [address], 12/18/2020 11:37:11 12/18/1912/18/2020 UA WITH CULTU RE REFLE X urinalysis reflex commen t normal This speci men will not refle x to a Urine Cultu re. Not Available [facility] ([facility]) [address] [place], [address], 12/18/2020 11:37:11 12/18/1912/18/2020 CBC WITH DIFFE RENTI AL/PL ATELE T WBC 8.0 x10e3 /uL 3.4-10 .8 normal Not Available [facility] ([facility]) [address] [facility], [place], [address], 12/18/2020 11:37:10 12/18/1912/18/2020 CBC WITH DIFFE RENTI AL/PL ATELE T RBC 3.96 x10e6 /uL 3.77-5 .28 normal Not Available [facility] ([facility]) [address] [facility], [place], [address], 12/18/2020 11:37:10 12/18/1912/18/2020 CBC WITH DIFFE RENTI AL/PL ATELE T hemoglobin 12.0 g/dL 11.1-1 5.9 normal Not Available [facility] ([facility]) [address] [facility], [place], [address], 12/18/2020 11:37:10 12/18/1912/18/2020 CBC WITH DIFFE RENTI AL/PL ATELE T hematocrit 36.3 % 34.0-4 6.6 normal Not Available [facility] ([facility]) [address] [place], [address], 12/18/2020 11:37:10 12/18/1912/18/2020 CBC WITH DIFFE RENTI AL/PL ATELE T MCV 92 fL 79-97 normal Not Available [facility] ([facility]) [address] [place], [address], 12/18/2020 11:37:10 12/18/1912/18/2020 CBC WITH DIFFE RENTI AL/PL ATELE T MCH 30.3 pg 26.6-3 3.0 normal Not Available [facility] ([facility]) [address] [place], [address], 12/18/2020 11:37:10 12/18/1912/18/2020 CBC WITH DIFFE RENTI AL/PL ATELE T MCHC 33.1 g/dL 31.5-3 5.7 normal Not Available [facility] ([facility]) [address] [facility], [place], [address], 12/18/2020 11:37:10 12/18/1912/18/2020 CBC WITH DIFFE RENTI AL/PL ATELE T RDW 13.2 % 11.7-1 5.4 normal Not Available [facility] ([facility]) [address] [facility], [place], [address], 12/18/2020 11:37:10 12/18/1912/18/2020 CBC WITH DIFFE RENTI AL/PL ATELE T platelets 322 x10e3 /uL 150-45 0 normal Not Available [facility] ([facility]) [address] [facility], [place], [address], 12/18/2020 11:37:10 12/18/1912/18/2020 CBC WITH DIFFE RENTI AL/PL ATELE T neutrophils 61 % not estab. normal Not Available [facility] ([facility]) [address] [facility], [place], [address], 12/18/2020 11:37:10 12/18/1912/18/2020 CBC WITH DIFFE RENTI AL/PL ATELE T lymphs 29 % not estab. normal Not Available [facility] ([facility]) [address] [facility], [place], [address], 12/18/2020 11:37:10 12/18/1912/18/2020 CBC WITH DIFFE RENTI AL/PL ATELE T monocytes 5 % not estab. normal Not Available [facility] ([facility]) [address] [facility], [place], [address], 12/18/2020 11:37:10 12/18/1912/18/2020 CBC WITH DIFFE RENTI AL/PL ATELE T eos 4 % not estab. normal Not Available [facility] ([facility]) [address] [facility], [place], [address], 12/18/2020 11:37:10 12/18/19 21 12/18/2020 CBC WITH DIFFE RENTI AL/PL ATELE T basos 1 % not estab. normal Not Available [facility] ([facility]) [address] [place], [address], 12/18/2020 11:37:10 12/18/1912/18/2020 CBC WITH DIFFE RENTI AL/PL ATELE T immature cells ct tech normal Not Available [facility] ([facility]) [address] [place], [address], 12/18/2020 11:37:10 12/18/1912/18/2020 CBC WITH DIFFE RENTI AL/PL ATELE T neutrophils (absolute) 4.9 x10e3 /uL 1.4-7. 0 normal Not Available [facility] ([facility]) [address] [place], [address], 12/18/2020 11:37:10 12/18/19 21 12/18/2020 CBC WITH DIFFE RENTI AL/PL ATELE T lymphs (absolute) 2.3 x10e3 /uL 0.7-3. 1 normal Not Available [facility] ([facility]) [address] [place], [address], 12/18/2020 11:37:10 12/18/1912/18/2020 CBC WITH DIFFE RENTI AL/PL ATELE T monocytes(ab solute) 0.4 x10e3 /uL 0.1-0. 9 normal Not Available [facility] ([facility]) [address] [place], [address], 12/18/2020 11:37:10 12/18/19 21 12/18/2020 CBC WITH DIFFE RENTI AL/PL ATELE T eos (absolute) 0.3 x10e3 /uL 0.0-0. 4 normal Not Available [facility] ([facility]) [address] [facility] [place], [address], 12/18/2020 11:37:10 12/18/19 21 12/18/2020 CBC WITH DIFFE RENTI AL/PL ATELE T baso (absolute) 0.0 x10e3 /uL 0.0-0. 2 normal Not Available [facility] ([facility]) [address] [facility], [place], [address], 12/18/2020 11:37:10 12/18/1912/18/2020 CBC WITH DIFFE RENTI AL/PL ATELE T immature granulocytes 0 % not estab. normal Not Available [facility] ([facility]) [address] [facility], [place], [address], 12/18/2020 11:37:10 12/18/1912/18/2020 CBC WITH DIFFE RENTI AL/PL ATELE T immature grans (abs) 0.0 x10e3 /uL 0.0-0. 1 normal Not Available [facility] ([facility]) [address] [facility], [place], [address], 12/18/2020 11:37:10 12/18/1912/18/2020 CBC WITH DIFFE RENTI AL/PL ATELE T NRBC ct tech normal Not Available [facility] ([facility]) [address] [facility], [place], [address], 12/18/2020 11:37:10 12/18/1912/18/2020 CBC WITH DIFFE RENTI AL/PL ATELE T hematology comments: ct tech normal Not Available [facility] ([facility]) [address] [place], [address], 12/18/2020 11:37:10 12/18/1912/18/2020 TSH+F REE T4 TSH 1.410 uIU/m L 0.450- 4.500 normal Not Available [facility] ([facility]) [address] [place], [address], 12/18/2020 11:37:10 12/18/1912/18/2020 TSH+F REE T4 T4,free(dire ct) 0.97 NG/dL 0.82-1 .77 normal Not Available [facility] ([facility]) [address] [place], [address], 12/18/2020 11:37:10 12/18/1912/18/2020 CMP14 +EGFR glucose 90 mg/dL 65-99 normal Not Available [facility] ([facility]) [address] [place], [address], 12/18/2020 11:37:10 12/18/1912/18/2020 CMP14 +EGFR BUN 14 mg/dL 6-24 normal Not Available [facility] ([facility]) [address] [place], [address], 12/18/2020 11:37:10 12/18/1912/18/2020 CMP14 +EGFR creatinine 0.71 mg/dL 0.57-1 .00 normal Not Available [facility] ([facility]) [address] [place], [address], 12/18/2020 11:37:10 12/18/1912/18/2020 CMP14 +EGFR eGFR if nonafricn AM 105 mL/mi n/1.7 3 >59 normal Not Available [facility] ([facility]) [address] [place], [address], 12/18/2020 11:37:10 12/18/19 21 12/18/2020 CMP14 +EGFR [...] SN Task force . Not Available [facility] ([facility]) [address] [facility] [place], [address], 12/18/2020 11:37:10 12/18/1912/18/2020 CMP14 +EGFR BUN/creatini ne ratio 20 9-23 normal Not Available [facility]) [address] [facility] [place], [address], 12/18/2020 11:37:10 12/18/1912/18/2020 CMP14 +EGFR sodium 137 mmol/ L 134-14 4 normal Not Available [facility] ([facility]) [address] [place], [address], 12/18/2020 11:37:10 12/18/1912/18/2020 CMP14 +EGFR potassium 4.4 mmol/ L 3.5-5. 2 normal Not Available [facility] ([facility]) [address] [place], [address], 12/18/2020 11:37:10 12/18/1912/18/2020 CMP14 +EGFR chloride 103 mmol/ L 96-106 normal Not Available [facility] ([facility]) [address] [place], [address], 12/18/2020 11:37:10 12/18/1912/18/2020 CMP14 +EGFR carbon dioxide, total 23 mmol/ L 20-29 normal Not Available [facility] ([facility]) [address] [place], [address], 12/18/2020 11:37:10 12/18/1912/18/2020 CMP14 +EGFR calcium 9.3 mg/dL 8.7-10 .2 normal Not Available [facility] ([facility]) [address] [place], [address], 12/18/2020 11:37:10 12/18/1912/18/2020 CMP14 +EGFR protein, total 7.1 g/dL 6.0-8. 5 normal Not Available [facility] ([facility]) [address] [facility] [place], [address], 12/18/2020 11:37:10 12/18/19 21 12/18/2020 CMP14 +EGFR albumin 4.2 g/dL 3.8-4. 8 normal Not Available [facility] ([facility]) [address] [facility] [place], [address], 12/18/2020 11:37:10 12/18/1912/18/2020 CMP14 +EGFR globulin, total 2.9 g/dL 1.5-4. 5 normal Not Available [facility] ([facility]) [address] [facility], [place], [address], 12/18/2020 11:37:10 12/18/19 21 12/18/2020 CMP14 +EGFR A/G ratio 1.4 1.2-2. 2 normal Not Available [facility] ([facility]) [address] [place], [address], 12/18/2020 11:37:10 12/18/1912/18/2020 CMP14 +EGFR bilirubin, total 0.3 mg/dL 0.0-1. 2 normal Not Available [facility] ([facility]) [address] [place], [address], 12/18/2020 11:37:10 12/18/19 21 12/18/2020 CMP14 +EGFR alkaline phosphatase 67 IU/L 48-121 normal Not Available [facility]) [address] [place], [address], 12/18/2020 11:37:10 12/18/19 21 12/18/2020 CMP14 +EGFR AST (SGOT) 10 IU/L 0-40 normal Not Available [facility] ([facility]) [address] [facility], [place], [address], 12/18/2020 11:37:10 12/18/19 21 12/18/2020 CMP14 +EGFR ALT (SGPT) 12 IU/L 0-32 normal Not Available [facility] ([facility]) [address] [facility], [place], [address], 12/18/2020 11:37:10 05/17/19 23 05/17/2022 COLOG UARD cologuard result reportable negati ve negati ve NEGAT MONISHA TEST RESUL T. A negat monisha Colog uard resul t indic ates a low likel ihood that a color ectal cance r (CRC) or advan isidro adeno ma ([place] polyp s with more advan isidro pre-m align ant featu res) is prese nt. [facility] that a perso n with a [...] of ,00 0 indiv idual s at [facility] risk for color ectal cance r who [...] asymp tomat ic indiv idual s at [facility] risk for color ectal cance r. Follo [...] 112:1 016-1 030. TEST DESCR IPTIO N: [place] site algor ithmi c tera sis of [...] years or older , who are at [facility] for color ectal cance r (CRC) . Colog uard has been appro shirin for use by the [place] FDA. The perfo rmanc e of Colog uard was estab lishe d in a cross secti onal study of [facility] adult s aged 50-84 . Colog [...] of ,00 0 indiv idual s at [facility] for color ectal [...] d can be acces sed at [facility] loc[facility] ion: www.e xactl abs.c om/re yanna . Addit ional descr iptio n of the Colog uard test proce ss, warni ngs and preca ution s can be found at www.c lesviau kajal.c om. Not Available [facility] (Cologuard Orders Only) [address], [place], [address], 05/21/2022 08:24:12 05/20/19 22 05/08/2021 XR, chest No observ ation record ed. [id number] Not Available 06/28/2022 20:43:56 02/09/20 22 01/27/2022 home sleep study No observ ation record ed. [email or web address] [facility] [address] [place], [place], [address], 09/07/2022 09:32:53 Result Notes None recorded. Problems Name Problem SNOMED Code Status Onset Date Resolution Date Notes Provider Name and Address Organization Details Recorded Time Benign essential hypertension 1790180 Active 2018 Not Available [facility] 3 20:42:45 Generalized anxiety disorder 94371913 Active 2018 Not Available [facility] 3 20:42:45 Mixed anxiety and depressive disorder 820977991 Active 2021 Not Available [facility] 3 20:42:45 Otitis externa 9510122 Active 2021 Not Available [facility] 3 20:42:45 Acute pharyngitis 320935313 Active 2021 Not Available [facility] 3 20:42:45 Glossopyrosis 857328622 Active 2021 Not Available [facility] 3 20:42:45 Diarrhea of presumed infectious origin 63660088 Active 2021 Not Available [facility] 3 20:42:45 Sleep apnea 43869992 Active 2021 Not Available [facility] 3 20:42:45 Obstructive sleep apnea syndrome 85781859 Active 2021 YNES Najera null, [facility] [employer] 3 10:43:06 Polycystic ovary syndrome 030557620 Active 2022 MOLLY Dooley [address] [place] [address] [address], [place], [address] , [facility] [employer] [facility] 3 10:05:14 Notes:COVID-19 pos 04/30/21 Problem Notes None recorded. Procedures Surgical History Date Name Laterality Status Provider Name and Address Organization Details Recorded Time Orthopedic Surgery completed Not Available [facility] 06/28/2022 20:42:03 Cholecystectomy completed Not Available [facility] 06/28/2022 20:42:03 completed Not Available [facility] 0 06/28/2022 20:42:03 Imaging Results None recorded. Procedure Notes None recorded. Medical Equipment None [...] Not Available Not Available norgestimat e-ethinyl estradiol 0.18mg/0.21 5mg/0.25mg- 0.035mg(28) tablet 05/27 completed Not Available Not Available Not [...] 2nd Gen Pen Needle 32 gauge x /32 U UTD ONCE D active Not Available [...] Not Avai lable Vitals Date Recorded Body height Provider Name an d Address Organization Details Last Updated DateTime 05/12/2021 167.64 cm Not Available [facility] 20:42:33 Date Recorded Systolic blood pressure Diastolic blood pressure Provider Name and Address Organization Details Last Updated DateTime 09/07/2022 148 mm[Hg] 80 mm[Hg] MOLLY Dooley [address] [facility], [facility] [address], [place], [address], [place] - [facility] 09/07/2022 14:42:25 Date Recorded Body height Body temperature Body mass index (BMI) Body weight Respiratory rate Oxygen saturation Oxygen saturation in Arterial blood by Pulse oximetry Heart rate Systolic blood pressure Diastolic blood pressure Provider Name and Address Organization Details Last Updated DateTime 3 167.64 cm 97.3 [degF] 46.8 kg/m2 949177. 79 g 16 /min 95 % 95 % 86 /min 130 mm[Hg] 82 mm[Hg] YNES Najera [place] - [facility] 3 09:30:06 Date Recorded Body mass index (BMI) Body height Oxygen saturation Oxygen saturation in Arterial blood by Pulse oximetry Heart rate Body temperature Body weight Systolic blood pressure Diastolic blood pressure Provider Name and Address Organization Details Last Updated DateTime 1 44.3 kg/m2 167.64 cm 99 % 99 % 86.99 /min 98 [degF] 930057. 03 g 120 mm[Hg] 80 mm[Hg] Not Available [facility] 3 20:42:32 Date Recorded Body mass index (BMI) Body height Oxygen saturation Oxygen saturation in Arterial blood by Pulse oximetry Heart rate Respiratory rate Body temperature Body weight Systolic blood pressure Diastolic blood pressure Provider Name and Address Organization Details Last Updated DateTime 2 45.8 kg/m2 167.64 cm 98 % 98 % 78 /min 16 /min 98 [degF] 121917. 8 g 130 mm[Hg] 82 mm[Hg] Not Available [facility] 3 20:42:33 Social History Question Answer Notes LastModified by Retewiizat ion Details LastModified Time Tobacco Smoking Status Never Smoker Not Available [facility] 06/28/2022 20:41:59 What Is Your Level Of Caffeine Consumption? Moderate [id number] Information not available 06/28/2022 How Much Tobacco Do You Chew? None [id number] Information not available 06/28/2022 In The 14 Days Before Symptom Onset, Have You Had Close Contact With A Laboratory-confirm ed COVID-19 While That Case Was Ill? No [id number] Information not available 06/28/2022 In The 14 Days Before Symptom Onset, Have You Had Close Contact With A Person Who Is Under Investigation For COVID-19 While That Person Was Ill? No [id number] Information not available 06/28/2022 What Type Of Diet Are You Following? REGULAR [id number] Information not available 06/28/2022 Which Illicit Or Recreational Drugs Have You Used? None [id number] Information not available 06/28/2022 Have There Been Any Changes To Your Family Or Social Situation? No [id number] Information not available 06/28/2022 Do You Use Insect Repellent Routinely? No [id number] Information not available 06/28/2022 What Is Your Relationship Status? Unknown [id number] Information not available 06/28/2022 Do You Use Your Seat Belt Or Car Seat Routinely? Yes [id number] Information not available 06/28/2022 Do You Have Smoke And Carbon Monoxide Detectors In Your Home? Yes [id number] Information not available 06/28/2022 How Much Tobacco Do You Smoke? No [id number] Information not available 06/28/2022 Do You Use Sunscreen Routinely? Yes [id number] Information not available 06/28/2022 Have You Recently Traveled Abroad? No [id number] Information not available 06/28/2022 Do You Have Any Dietary Restrictions? No [id number] Information not available 06/28/2022 Sex: Unknown Functional Status Question Answer Note LastModified by Organizat ion Details LastModified Time Do you use any illicit or recreational drugs? No [id number] Information not available 06/28/2022 Do you or have you ever used any other forms of tobacco or nicotine? No [id number] Information not available 06/28/2022 What is your level of alcohol consumption? None [id number] Information not available 06/28/2022 Do you or have you ever used smokeless tobacco? Never used smokeless tobacco MIGRATION.[id number] Information not available 06/28/2022 Are you currently employed? Yes [email or web address] Information not available 09/06/2022 What is your occupation? [employer] [id number] Information not available 06/28/2022 Do you or have you ever used e-cigarettes or vape? Former user of electronic cigarettes MIGRATION.[id number] 1324 Information not available 06/28/2022 What is your exercise level? None [id number] Information not available 06/28/2022 Mental Status None recorded. Family History Relationship Description Onset Age of this Age Resolved Age Notes LastModified by Organization Details LastModified Time Father Hypertensive disorder [id number] Not available 06/28/2022 20:42:03 Maternal Grandfather Malignant lymphoma [id number] Not available 06/28/2022 20:42:04 Paternal Aunt Malignant tumor of breast MIGRATION.624 [id number] Not available 06/28/2022 20:42:04 Mother Dementia [id number] Not available 06/28/2022 20:42:04 Medical History Condition [...] SNOMED-CT Code Diagnosis ICD10 Code Diagnosis Note [id number] MOLLY Dooley [facility] [place] [address] [place] [address] 10/13/2020 00:00:00 10/27/2020 17:35:26 [id number] MOLLY Dooley [facility] [place] [address] [place] [address] 05/12/2021 00:00:00 05/30/2021 11:54:22 [id number] MOLLY Dooley [facility] [place] [address] [place] [address] 01/19/2022 00:00:00 01/24/2022 22:08:35 [id number] MOLLY Dooley [facility] [place] [address] [place] [address] 09/07/2022 09:22:44 09/07/2022 10:12:08 Adult health examination 231338338 Z00.01 well exam completed Benign ess ential hypertension 3402259 I10 refill on medication . stable. Obstructiv e sleep apnea syndrome 37389628 G47.33 stable on tx Mixed anxi ety and depressive disorder [id number] F41.8 stable on medication s. refilled. Long-term drug therapy 311858636 Z79.899 screening CBC, CMP. Body mass index 40+ - severely obese 954199451 Z68.42 start wegovy if insurance will authorize and screening TFTs due. Polycystic ovary syndrome [id number] E28.2 screening hormone panel. Cholesterol screening 27 5413198 Z13.220 fasting lipids due Diabetes m ellitus screening 254531780 Z13.1 screening diabetes due Bite of tick 375220172 W 57.XXXA empiric doxy 100mg bid course. Health Concerns Section Related Observation LastModified by Organization Detai ls LastModified Time None Recorded Concern Status LastModified by Organization Details LastModified Time None Recorded Advance Directives Directive None Recorded Payers Encounter Date Sequence Insurance Name Policy Number Policy Ken Covered Member ID Ken Member ID Guarantor Name 09/07/2022 2 [employer] - [place] - [employer] LOCAL [id number] (PPO) [id number] Jeni Kohler [id number] Jeni Kohler 09/07/2022 1 [employer] [id number] Jeni Kohler [id number] Jeni Kohler Notes Date Note Type Note Provider Name and Address Organization Details Recorded Time 021 text/ht ml Anxiety, Generalized DisorderReported bypatient.Onset/Timing:as long as patient can remember Severity:severe Context:depression; life stressors Modifying Factors:psychotropic medication Associated Symptoms:difficulty concentrating;difficulty controlling worry;excess anxiety;fatigue;high irritability;restlessness;sleep disturbancesNotes:Doesn't think her Citalopram is working. Feels that her anxiety worsened ~end of last year. Stated she has been dealing w/ frequent loss of family members in the past year or so, loss of a pet this month, of her mother in law last month. Mission that the citalopram was working well before [...] D can be checked today. Not Available [email or web address] 10/27/2020 17:35:26 022 text/ht ml Generic HPI TemplateReported bypatient.Notes:Apr 29 symptoms started [...] congestion but it is improving. Not Available [email or web address] 05/30/2021 11:54:22 022 text/ht ml Anxiety/DepressionReported bypatient.Quality:doesnt matter time of day. Severity:denies [...] appetite good; energy good; no apathy; maintaining functionalityHypertensionReported bypatient.Duration:has noted for years Onset/Timing:better Alleviating Factors:medication Self Care:not under emotional stress Associated Symptoms:no shortness of breath; no fatigue; no palpitations; no decline in exercise capacity; no snoring Not Available [email or web address] 01/24/2022 22:08:35 05/11/2 023 text/ht ml Anxiety/DepressionReported bypatient.Quality:symptoms worse during the day Severity:denies [...] performace; no nasal congestion Wellness MOLLY Dooley [address] [facility], [facility] [address], [place], [address], [facility] 09/27/2022 16:06:55 OBGyn Episode No OBEpisode recorded.
--- OUTSIDE RECORDS SUMMARY | 2024-09-26 01:18 | XMS_ITS | Data Portability ---
Author Organization [facility] Address [address] [place] [address] Care Team Providers Care Care Mgr Name Role Phone SHAHIDA MARCANO Primary Care Provider Unavailab le Assessment No assessment recorded. Plan of Treatment Reminders Order Date Submit Date Provider Last Modified By Organization Details Last Modified Time Details Appointments ANY 15 2024 08:30A MOLLY Pederson Not available Not available Not available Lab lipid panel, serum 2024 025 [facility], [address] [place] [address], [id number], 07/07/2024 14:53:14 CBC w/ auto diff 2024 025 [facility], [address] [place] [address], [id number], 07/07/2024 14:53:13 CMP, serum or plasma 2024 025 [facility], [address] [place] [address], [id number], 07/07/2024 14:53:13 insulin, serum 2024 025 [facility], [address] [place] [address], [id number], 07/07/2024 14:53:28 TSH + free T4, serum 2024 025 [facility], [address] [place] [address], [id number], 07/07/2024 14:53:14 HbA1c (hemoglob in A1c), blood 2024 025 [facility], [address] [place] [address], [id number], 07/01/2024 11:04:25 Referral None recorded. Procedures None recorded. Surgeries None recorded. Imaging None recorded. Medication Orders cephalexi n 500 mg capsule [address] [facility] #[id number], [address] [place] [address], [id number], 08/20/2024 17:21:01 Bactrim DS 800 mg-160 mg tablet [address] [facility] #02655, [address] [place] [address], [id number], 08/20/2024 17:21:05 meloxicam 15 mg tablet [address] [facility] #64512, [address] [place] [address], [id number], 05/01/2024 10:14:58 bupropion HCl XL 150 mg 24 hr tablet, extended release [address] [facility] #80748, [address] [place] [address], [id number], 05/01/2024 10:15:00 escitalop virgil 10 mg tablet [address] [facility] #90686, [address] [place] [address], [id number], 05/01/2024 10:43:38 trazodone 50 mg tablet [address] [facility] #60339, [address] [place] [address], [id number], 05/01/2024 10:14:59 telmisart an 80 mg-hydroc hlorothia zide 12.5 mg tablet [address] [facility] #97600, [address] [place], [place], [id number], 05/01/2024 10:14:58 amlodipin e 2.5 mg tablet [address] [facility] #28728, [address] [place] [address], [id number], 08/21/2023 17:30:20 meloxicam 15 mg tablet 2023 [facility], [address] [place] [address], [id number], 05/01/2024 09:50:35 trazodone 50 mg tablet [address] [facility] #96382, [address] [place] [address], [id number], 07/20/2023 13:20:15 telmisart an 80 mg-hydroc hlorothia zide 12.5 mg tablet [address] [facility] #53393, [address] [place] [address], [id number], 07/20/2023 13:20:10 bupropion HCl XL 150 mg 24 hr tablet, extended release [address] [facility] #50272, [address] [place] [address], [id number], 07/20/2023 13:20:15 escitalop virgil 10 mg tablet 2023 025 [facility], [address] [place], [place], [id number], 05/01/2024 10:43:28 Patient TargetsNo targets recorded. Patient Instructions Encounter Date Encounter Id Patient Instructions Last Modified By Organization Details Last Modified Time 05/01/2024 [id number] A healthy lifestyle: care instructions [facility] Not available 05/01/2024 10:14:52 08/20/2024 [id number] A healthy lifestyle: care instructions [facility] Not available 09/06/2024 22:58:10 Reason for Referral None Reported. Results Created Date Observation Date Name Description Value Unit Range Abnormal Flag Note LastModifiedBy Organization Detail LastModifiedTime 07/13/19 24 07/12/2023 MRI, cervi danisha spine , w/o contr ast No observ ation record ed. [address] [facility] [address], [place], [address], 07/20/2023 13:09:33 01/18/20 24 01/18/2024 MAMMO , scree shailesh, digit al, bilat eral No observ ation record ed. [address] [facility] [address] [facility], [place], [address], 01/20/2024 16:14:39 06/09/19 25 06/09/2024 XR, knee No observ ation record ed. [address] [facility] [place] [address], [place], [address], 06/11/2024 11:00:07 Result Notes None recorded. Problems Name Problem SNOMED Code Status Onset Date Resolution Date Notes Provider Name and Address Organization Details Recorded Time Benign essential hypertensio n 5475353 Active 2023 MOLLY Dooley Attn: Gaby g,[address] [facility], [place], [address] , [facility] 22:20:06 Obstructive sleep apnea syndrome 50127210 Active 2023 MOLLY Dooley Attn: Accountin g,[address] [facility], [place], [address], [place] [facility] 4 22:20:07 Mixed anxiety and depressive disorder 868307203 Active 2023 MOLLY Dooley Attn: Accountin g,[address] [facility], [place], [address], [place] [facility] 4 22:20:10 Degeneratio n of cervical interverteb ral disc 99910434 Active 2023 MOLLY Dooley Attn: Accountin g,[address] [facility], [place], [address], [place] [facility] 4 22:20:21 Body mass index 40+ - severely obese 861660765 Active 2024 MOLLY Dooley Attn: Accountin g,[address] [place], [address], [place] [facility] 5 23:00:36 Obesity 750432074 Active 2024 MOLLY Dooley Attn: Accountin g,[address] [place], [address], [place] [facility] 5 10:08:53 Long-term drug therapy Active 2024 MOLLY Dooley Attn: Accountin g,[address] [place], [address], [place] [facility] 5 10:08:58 Depression screening negative 0465793203793 02 Active 2024 MOLLY Dooley Attn: Accountin g,[address] [place], [address], [place] [facility] 5 22:59:59 Morbid obesity 981585052 Active 2024 MOLLY Dooely Attn: Accountin g,[address] [place], [address], [place] [facility] 23:00:01 Obese class III 040214154 Active 2024 MOLLY Dooley Attn: Gaby julian,[address] [facility], [place], [address], [facility] 23:00:03 Problem Notes None recorded. Medical Equipment None Reported. Allergies No known drug allergies Medications Name Sig Start Date Stop Date Status Note LastModified by Organization Details LastModified Time medroxyprog esterone 10 mg tablet TAKE 1 TABLET BY [...] Not Available Not Available No t Available azithromyci n 250 mg tablet TAKE 2 TABLETS (500 MG) BY ORAL ROUTE ONCE DAILY FOR 1 DAY THEN 1 TABLET (250 MG) BY ORAL ROUTE ONCE DAILY FOR 4 DAYS 05/01 completed Not Available Not Available Not Available meloxicam 15 mg tablet TAKE 1 TABLET BY MOUTH DAILY active Not Available Not Available No t Available spironolact one 100 mg tablet TAKE 1 TABLET BY MOUTH EVERY DAY 2024 active Not Available Not Available Not Avai lable amlodipine 2.5 mg tablet TAKE 1 TABLET BY MOUTH EVERY DAY active Not Available Not Available No t Available sulfamethox azole 800 mg-trimetho prim 160 mg tablet TAKE 1 TABLET BY MOUTH TWICE DAILY active Not Available Not Available No t Available tramadol 50 mg tablet TAKE 1 TABLET BY MOUTH EVERY 6 HOURS NEEDED 05/01 completed Not Available Not Available Not Available amoxicillin 875 mg tablet Take 1 tablet every 12 hours by oral route. 05/01 completed Not Available Not Available Not Available cephalexin 500 mg capsule TAKE 1 CAPSULE BY MOUTH EVERY 6 HOURS active Not Available Not Available No t Available telmisartan 80 mg-hydrochl orothiazide 12.5 mg tablet TAKE 1 TABLET BY MOUTH EVERY DAY FOR BLOOD PRESSURE active Not Available Not Available No t Available azelastine 137 mcg (0.1 %) nasal spray active Not Available Not Available Not Available epinephrine 0.3 mg/0.3 mL injection, auto-inject or INJECT INTO THE MUSCLE IF NECESSARY NEEDED FOR ANAPHYLAC TIC REACTION active Not Available Not Available No t Available fluticasone propionate 50 mcg/actuati on nasal spray,suspe nsion active Not Available Not Available Not Available escitalopra m 10 mg tablet TAKE 1 TABLET BY [...] Available Not Available No t Available BD Insulin Syringe Ultra-Fine 1 mL 31 gauge x 5/16 USE IN THE BACK OF THE ARM SUBCUTANE OUSLY active Not Available Not Available No t Available Rivelsa 0.15 mg-20 mcg/0.15 mg-25 mcg tablets,3 month dose pack TAKE 1 TABLET BY MOUTH DAILY active Not Available Not Available No t Available Vitals Date Recorded Respiratory rate Systolic blood pressure Diastolic blood pressure Provider Name and Address Organization Details Last Updated DateTime 05/01/2024 18 /min 150 mm[Hg] 90 mm[Hg] MOLLY Dooley Attn: Accounting, [address] [place], [address], [facility] 05/01/2024 10:14:02 Date Recorded Body height Body mass index (BMI) Body weight Oxygen saturation Oxygen saturation in Arterial blood by Pulse oximetry Heart rate Systolic blood pressure Diastolic blood pressure Provider Name and Address Organization Details Last Updated DateTime 5 168.28 cm 45.8 kg/m2 840856. 42 g 97 % 97 % 86 /min 150 mm[Hg] 82 mm[Hg] Mariah Gore MA [facility] 5 09:55:19 Date Recorded Systolic blood pressure Diastolic blood pressure Systolic blood pressure Diastolic blood pressure Provider Name and Address Organization Details Last Updated DateTime 07/20/2023 164 mm[Hg] 110 mm[Hg] 164 mm[Hg] 110 mm[Hg] MOLLY Murphy Attn: Accounting ,[address] [place], [address] , [facility] 4 13:17:19 Date Recorded Respiratory rate Body height Body mass index (BMI) Body weight Oxygen saturation Oxygen saturation in Arterial blood by Pulse oximetry Heart rate Systolic blood pressure Diastolic blood pressure Provider Name and Address Organization Details Last Updated DateTime 4 20 /min 168.28 cm 48 kg/m2 347983. 27 g 96 % 96 % 88 /min 136 mm[Hg] 100 mm[Hg] Mariah Gore MA [facility] 4 12:54:32 Date Recorded Systolic blood pressure Diastolic blood pressure Provider Name and Address Organization Details Last Updated DateTime 08/21/2023 150 mm[Hg] 100 mm[Hg] MOLLY Dooley Attn: Accounting,[address] [place], [address], [facility] 08/21/2023 17:31:52 Date Recorded Body height Oxygen saturation Oxygen saturation in Arterial blood by Pulse oximetry Heart rate Body mass index (BMI) Body weight Respiratory rate Systolic blood pressure Diastolic blood pressure Provider Name and Address Organization Details Last Updated DateTime 4 168.28 cm 96 % 96 % 84 /min 46.6 kg/m2 350362. 67 g 20 /min 150 mm[Hg] 108 mm[Hg] Mariah Gore MA [facility] 4 17:10:40 Date Recorded Body height Body mass index (BMI) Body weight Oxygen saturation Oxygen saturation in Arterial blood by Pulse oximetry Heart rate Respiratory rate Systolic blood pressure Diastolic blood pressure Provider Name and Address Organization Details Last Updated DateTime 5 168.28 cm 43.2 kg/m2 619830. 94 g 98 % 98 % 98 /min 20 /min 150 mm[Hg] 92 mm[Hg] Mariah Gore MA [facility] 5 16:56:06 Social History Question Answer Notes LastModified by Organizat ion Details LastModified Time Tobacco Smoking Status Never Smoker Mariah Gore MA null, [facility] 07/20/2023 12:51:13 Do You Have An Advance Directive? No Information not available 08/21/2023 Are You Blind Or Do You Have [...] Date Of Your Most Recent Tobacco Screening? 08/20/2024 Information not available 08/20/2024 Do You Use Your Seat Belt Or Car Seat Routinely? Yes Information not available 07/20/2023 Do You Have Smoke And Carbon Monoxide Detectors In Your Home? Yes Information not available 07/20/2023 Do You Use Sunscreen Routinely? Yes Information not available 07/20/2023 Has Tobacco Cessation Counseling Been Provided? Yes Information not available 08/21/2023 On What Date Was Tobacco Cessation Counseling Provided? 08/20/2024 Information not available 08/20/2024 Sex: Female Functional Status Question Answer Note LastModified by Organizat ion Details LastModified Time Do you use any illicit or recreational drugs? No Information not available 07/20/2023 Do you or have you ever used any other forms of tobacco or nicotine? No Information not available 07/20/2023 What is your level of alcohol consumption? None Information not available 07/20/2023 Are you able to care for yourself? Yes Information n ot available 07/20/2023 What is your exercise level? [...] SNOMED-CT Code Diagnosis ICD10 Code Diagnosis Note [id number] Shailesh Randolph MD [facility] [address] [place] [address] 07/20/2023 12:39:27 07/26/2023 11:21:27 Obstructive sleep apnea syndrome 61778396 G47.33 pt is on cpap therapy but struggling some with tolerating mask. Will add trazodone 50mg -100mg qhs Benign ess ential hypertension 7032793 I10 Restart telmisarta n 80/hctz 12.5mg daily. Mixed anxi ety and depressive disorder 241371868 F41.8 refill on wellbutrin XL 150mg daily and lexapro 10mg daily. Degenerati on of cervical intervertebral disc 64487267 M50.30 Trial of meloxicam 15mg daily while waiting to see pain management . Long-term drug therapy 097813937 Z79.983 [id number] Shailesh Randolph MD [facility] [address] [place] [address] 08/21/2023 16:42:34 08/22/2023 14:41:07 Benign essential hypertension 1426936 I10 continue telmisarta n 80/hctz 12.5mg daily. add low dose amlodipine 2.5mg daily. Obstructiv e sleep apnea syndrome 65407134 G47.33 pt is on cpap therapy but struggling some with tolerating mask, she nasal mask only but feels that a full face mask would help. trazodone nightly is helping with mask toleration . Mixed anxi ety and depressive disorder 252902618 F41.8 stable on wellbutrin XL 150mg daily and lexapro 10mg daily. Degenerati on of cervical intervertebral disc 88239098 M50.30 saw pain management and they suggested traction physical therapy still and then f/u in august to see if she needs cortisone shot. Long-term drug therapy 400680890 Z79.254 [id number] Shailesh Randolph MD [facility] [email or web address] [address] [place] [address] 05/01/2024 09:39:40 05/01/2024 13:38:17 Body mass index 40+ - severely obese 155005513 Z68.42 bmi 45.8, fasting insulin and thyroid function testing is due Obesity 244105584 E66.9 discussed healthy diet, exercise, controllin g carbohydra roberto and added sugars in the diet Adult heal th examination 896972893 Z00.01 Annual wellness exam completed Benign ess ential hypertension 8252514 I10 Refill telmisarta n 80/hctz 12.5mg daily. Obstructiv e sleep apnea syndrome 50442062 G47.33 patient is unable to tolerate cpap entirely and is not using it. she has appt tomorrow with talent specialist to discuss allergies and her sleep. Trial of trazodone 50-100 mg p.o. q.h.s. to help with sleep and tolerate CPAP. Mixed anxi ety and depressive disorder 738911527 F41.8 refill on wellbutrin XL 150mg daily and lexapro 10mg daily. Stable on medication regimen Degenerati on of cervical intervertebral disc 77296946 M50.30 Trial of meloxicam 15mg daily while waiting to see pain management . Long-term drug therapy 062903975 Z79.899 Routine CBC and CMP are due Cholesterol screening 27 1886649 Z13.220 Fasting lipid panel due Diabetes m ellitus screening 419419148 Z13.1 Routine A1c screening due [id number] Shailesh Randolph MD [facility] [email or web address] [address] [place] [address] 08/20/2024 16:30:22 08/27/2024 10:09:01 Abscess of breast 02823704 N61.1 There is abscess of the right lateral breast. Start Keflex 500 mg every 6 hours for 10 days and Bactrim DS twice daily for 10 days. We will need to refer to a general surgeon if this does not show good improvemen t within the next 72 hours. Benign ess ential hypertension 6298934 I10 elevated today with concern and pain from the right lateral breast abscess. Patient is very uncomforta ble blood pressure is 150/92. She does take telmisarta n hydrochlor othiazide 80/12.5 mg daily. We will monitor closely Depression screening negative 4683555654 59484 Z13.31 Noted Obese class III 97401960 5 E66.813 BMI 43.2-discu ssed healthy diet, exercise, controllin g carbohydra roberto and added sugars in the diet Body mass index 40+ - severely obese 255213825 Z68.41 BMI 43.2 Health Concerns Section Related Observation LastModified by Organization Detai ls LastModified Time None Recorded Concern Status LastModified by Organization Details LastModified Time None Recorded Advance Directives Directive N: Payers Encounter Date Sequence Insurance Name Policy Number Policy Ken Covered Member ID Ken Member ID Guarantor Name 07/20/2023 1 UMR [id number] Jeni Kohler [id number] Jeni Kohler 07/20/2023 2 [employer] Jeni Kohler [id number] Jeniterrence Kohler 08/21/2023 1 UMR [id number] Jeni Kohler [id number] Jeni [place] 08/21/2023 2 [employer] - NEBA - PLUMBERS & PIPEFITTERS LOCAL 421 (PPO) [id number] Jeni Kohler [id number] Jeni Kohler 05/01/2024 1 UMR [id number] Jeni Kohler [id number] Jeniterrence Kohler 05/01/2024 2 [employer] - NEBA - PLUMBERS & PIPEFITTERS LOCAL 421 (PPO) [id number] Jeni Kohler [id number] Jeni [place] 08/20/2024 1 UMR [id number] Jeni Kohler [id number] Jeni [place] 08/20/2024 2 [employer] - NEBA - PLUMBERS & PIPEFITTERS LOCAL 421 (PPO) [id number] Jeni Kohler [id number] Jeni Kohler Notes Date Note Type Note [...] HPI TemplateReported bypatient.Notes:pt is on semaglutide via [facility] for 4 weeks, dose increase next week. she has lost a few pounds.HypertensionReported bypatient.Notes:pt bp is elevated again and she is needing to get back on medication.Obstructive Sleep Apnea F/UReported bypatient.Alleviating factors:relief with CPAP [facility]CP[facility] Dooley Attn: Accounting, [address] [place], [address], [facility] 07/26/2023 09:38:02 08/21/19 24 text/htm l Anxiety/DepressionReported [...] bypatient.Alleviating factors:relief with CPAP Prior TreatmentCPAP [facility] MOLLY Dooley Attn: Accounting, [address] [place], [address], [place] [facility] 08/29/2023 22:21:17 05/01/19 25 text/htm l Anxiety/DepressionReported [...] Prior opinionPCP MOLLY Dooley Attn: Accounting, [address] [place], [address], [facility] 05/19/2024 21:52:35 08/21/19 25 text/htm l Breast MassReported bypatient.Location:right; upper outer quadrant Onset/Timin-7 days Quality:painful; localized; firm Severity:severe Duration:persistent Associated Symptoms:no fever;redness of the skin;breast swellingNotes:Acute infection in the right breast MOLLY Dooley Attn: Accounting, [address] [facility], [place], [address], [facility] 09/06/2024 23:03:58 OBGyn Episode No OBEpisode recorded.
--- OUTSIDE RECORDS SUMMARY | 2024-09-26 01:18 | XMS_ITS | Clinical Summary ---
Author Organization [facility] [address] Address [address] [place] [address] Phone Care Team Providers Care Survey Operations Director Name Role Phone FayelatishaZari Primary Care Pr [...] She can apply ice. She can take qhde-ctc-gxxfheo Advil as needed. Follow-up in a week [...] physical. Based on her 2010 profile, her Lagrange 10 year risk is very low. There is no indication for treatment at this time. Adiposity 09/28/1997 Overview (08/03/2016): Obesity Assessment & Plan (11/06/2017 9:38 AM CDT): She had some success with weight loss while seeing a reactor kettle operator, but has gained it all back and [...] etc. She will get back with her reactor kettle operator as well. She will be getting wellness labs soon, and if there are problems or questions, she can bring them in for review. Follow-up at least annually for this problem. Migraine headache 10/28/1989 Overview (10/15/2016): Rare migraines. Encounters Date Type Department Care Team Description 07/09/2024 Telephone [facility] [address] [facility] [address] [address] Shailesh Dawn DO from Last 3 Months Immunizations Immunization Administration Dates Next Due Tdap 11/29/2010 Surgical [...] on file Legal Sex Female 10:58 AM TELETYPE TELEGRAPHER Gender Identity Not on file Sexual Orientation [...] 8:43 AM CDT Height 167.6 cm (5' 6) 08/26/2022 8:43 AM CDT Body Mass Index 43.58 08/26/2022 8:43 AM CDT Plan of Treatment Health Maintenance Due Date Last Done Comments Breast Cancer Screening-Mammogram 1977 Colon Cancer Screening-Colonoscopy 1977 Depression Screening 1977 Hepatitis C Screening 1977 Hepatitis B Screening 1995 Cervical Cancer Screening 05/02/20132012, 05/01/2012 Regular Well Visit/Exam 18-64 11/06/2018 11/06/2017 DTaP/Tdap/Td Vaccine (2 - Td or Tdap) 11/29/2020 11/29/2010 Influenza Vaccine (Season Ended) 2024 Pneumococcal vaccine <65 Aged Out No longer eligible based on patient's age to complete this topic Procedures Procedure Name Priority Date/Time Associated Diagnosis Comments THINPAP, REFLEX HPV ALL PTH Routine 05/02/2012 1:46 PM TELETYPE TELEGRAPHER from Last 3 Months or Most Recently Relevant to Health Maintenance Results * ThinPrep Pap, Reflex HPV all pth (05/02/2012 1:46 PM TELETYPE TELEGRAPHER) SOURCE: SEE NOTE [facility] HISTORICAL RESULTS Comment:Cervix, [...] Risk HPV DNA testing was not performed. Downstairs Maid SEE NOTE [facility] HISTORICAL RESULTS Comment:YQ, CT(ASCP)) Review dye room helper SEE NOTE [facility] HISTORICAL RESULTS Comment: LXS, CT(ASCP) Test performed at [facility] [address] [address] Director: SADE DENT DO [facility] 05/02/2012 1:46 PM TELETYPE TELEGRAPHER Kat Morales MD LAB PATHOLOGY ORDER NIKOLAS Final Result [facility] HISTORICAL RESULTS from Last 3 Months or Most Recently Relevant to Health Maintenance Insurance [facility] CHOICE PLUS [facility] HMO/PPO Address: [address] [address] [place] [address] [facility] [employer] EPO [employer] IBEW Member Subscriber Plan / Payer (Ef fective 2022-Present) Name:Jeni Kohler Relation to Subscriber:Self Name:Jeni Kohler Payer ID:[id number] (NAIC) Group ID:[id number] Type:CIGNA HMO/PPO Address: [facility] [address] [place] [address] [facility] HMO/PPO Address: [facility] [address] [place] [address] [facility] CHOICE PLUS [facility] HMO/PPO Address: [address] [address] [place], [place] [address] [place] [address] OPEN ACCESS [facility] Care Teams Survey Operations Director Relationship Specialty Start Date End Date Zari Murillo PA PCP - General Physician Blue Line Operator 08/10/20
--- OUTSIDE RECORDS SUMMARY | 2024-09-26 01:18 | XMS_ITS | Referral Summary ---
Author Organization [facility] [employer] Address [address] [place] [address] Phone Care Team Providers Care Inventory Manager Name Role Phone Zari Murillo Primary Care Pr ovider Encounters Date Type Department Care Team Description 07/09/2024 Telephone [facility] Orthopedics and Sports Medicine [address] [place] [address] Shailesh Dawn DO from Last 3 Months Allergies No known active allergies Medications INTROVALE [...] She can apply ice. She can take [id number]-vgg-[id number] Advil as needed. Follow-up in a week [...] physical. Based on her 2010 profile, her [place] 10 year risk is very low. There is no indication for treatment at this time. Adiposity 09/28/1997 Overview (08/03/2016): Obesity Assessment & Plan (11/06/2017 9:38 AM CDT): She had some success with weight loss while seeing a hedge fund principal, but has gained it all back and [...] etc. She will get back with her hedge fund principal as well. She will be getting wellness labs soon, and if there are problems or questions, she can bring them in for review. Follow-up at least annually for this problem. Migraine headache 10/28/1989 Overview (10/15/2016): Rare migraines. 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 SEE NOTE [facility] HISTORICAL RESULTS Comment:YQ, CT(ASCP)) Review binding dyer SEE NOTE [facility] HISTORICAL RESULTS Comment: LXS, CT(ASCP) Test performed at [address] [address] Director: SADE DENT DO [facility] 05/02/2012 1:46 PM PRINTING FILM STRIPPER Kat Morales MD LAB PATHOLOGY ORDER NIKOLAS Final Result [facility] HISTORICAL RESULTS from Last 3 Months or Most Recently Relevant to Health Maintenance Insurance [facility] CHOICE PLUS [facility] HMO/PPO Address: [address] [address] [place] [address] [facility] H[facility]/PPO Address: [address] [place] [address] [facility] EPO JUDYYG IBEW Member Subscriber Plan / Payer (Ef fective 2022-Present) Name:Jeni Kohler Relation to Subscriber:Self Name:Jeni Kohler Payer ID:[id number] (NAIC) Group ID:[id number] Type:[employer]IG[employer] HMO/PPO Address: [address] [place] [address] [facility] H[facility]/PPO Address: [address] [address] [place] [address] [facility] CHOICE PLUS [facility] HMO/PPO Address: [address] [address] [place] [address] [facility] HMO/PPO Address: [address] [place] [address] [facility] EPO Care Teams Inventory Manager Relationship Specialty Start Date End Date Zari Murillo PA PCP - General Physician Human Resources Compensation Analyst 08/10/20
--- NOTE | 2024-09-26 13:58 | WPDHPUPDATE1 ---
History and Physical Update Update Date/Time: 09/26/24 13:58 History and Physical has been reviewed, including an updated exam of the patient. There are NO changes in the patient's condition. Risks, benefits, and alternatives have been discussed and questions answered. Patient agrees to proceed with procedure.
--- NOTE | 2024-09-26 16:46 | S_PTH ---
PATIENT: Jnei Kohler LOC: [facility] U#:[id number] AGE/SX: 49/F ROOM: RE09/26/[address]: Chema Sterling MD : [id number] BED: DIS: 09/26/2024 SPEC #: [id number] RECD: 09/29/24 07:28 STATUS: MARGA REQ #: [id number] NOHEMY: 09/26/24 16:[address]: Chema Sterling DEPT: [facility] Surgical RECD BY: Daisha Mauricio ENTERED: 09/29/24 07:29 SP TYPE: Surgical OTHR DR: Zari Murillo, PA-C Tissues: A - Cyst Procedures: Hematoxylin and Eosin Stain Gross and Microscopic Level 4
[2024-09-26] MEDS: BUPivacaine HCL 0.5% 10 ML AMP 30 ML INFILTRATE (16:54)
[2024-09-26] MEDS: LIDO 1%/EPINEPHRINE 1:100,000 20 ML VIAL 30 ML INFILTRATE (16:55)
--- NOTE | 2024-09-26 17:25 | PM.OP ---
Procedure Note - Brief Procedure Note - Brief Date of procedure: 09/26/24 right axillary infected cyst Post-op diagnosis: Same Procedure performed: Excision of right axillary ruptured inclusion cyst with 6cm intermediate layered wound closure Surgeon: Chema Sterling MD Anesthesia: local Estimated blood loss (mL): 5 Drains: No Packing: No Pathology: Yes (Cyst to pathology) Complications: No immediate complications Condition: Stable Disposition: PACU
--- NOTE | 2024-09-27 08:52 | W.PM.PROC2 ---
Procedure Note - Detailed Date of Procedure 09/26/24 Pre-op Diagnosis Right axillary ruptured cyst. Post-op Diagnosis Same Procedure Performed Excision of ruptured right axillary cyst with 6cm intermediate layered wound closure. 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 It was incised and drained in the office and packed. Infection has now resolved but the cyst wall remains. She presents now for excision of the cyst to prevent further recurrence of infection. Findings The patient ruptured cyst with a residual cyst wall. The residual cyst measured approximately 2.5x1.5x1cm. A 6cm intermediate layered wound closure was Required to close the incision. Description of Procedure After informed consent was obtained patient was brought to the operating room she was placed supine position and then the area of the right axilla was then prepped and draped in the usual sterile fashion. A time-out was then performed correctly identifying the patient as well as procedure to be performed. Site marking was verified and no IV antibiotics were given as no IV was started since this was a local anesthesia procedure. I 1st started by anesthetizing the tissue around the cyst wall utilizing 1% lidocaine mixed with 0.5% Marcaine. Once adequate anesthesia had been achieved I then made a transverse elliptical incision to incorporate the whole cyst wall. The incision was carried deeply down through the dermis of the skin with a scalpel electrocautery was then used to completely excise out the cyst wall within the ellipse of tissue and the attached overlying skin. The specimen measured approximately 2.5x1.5x1cm. It was sent to pathology for examination. I then irrigated the incision and then achieved hemostasis utilizing electrocautery. A 6cm intermediate layered wound closure was then performed. Interrupted 2-0 and 3-0 Vicryl sutures were used in the subcutaneous tissues. The skin edges were then approximated utilizing a running subcuticular 4-0 Monocryl suture. The incision closed without any tension. It was then cleaned and skin glue was applied. The patient tolerated the procedure well no complications. All sponges, needles, and instrument counts were correct at the end procedure. EBL was _5__cc. The patient was awakened and taken to recovery in stable and satisfactory condition. Implants None Estimated Blood Loss 5 Drains No Packing No Pathology Yes ( cyst sent to pathology) Complications No immediate complications Condition Stable [facility] Billing Surgery - Charge Forward: Surgery Billing
== END 2024-09-26 17:36 | disposition home or self-care (01) ==
PROVIDERS: PCP Physician Assistant; Visit Provider Surgery
PROC: (CPT 11404; principal; 2024-09-26 13:30)
DX: L72.0 Epidermal cyst (principal); I10 Essential (primary) hypertension; F41.9 Anxiety disorder, unspecified; Z98.890 Other specified postprocedural states; Z90.49 Acquired absence of other specified parts of digestive tract
CPT/HCPCS: 11404; 12032; 88305; A9270; J2004